=== PATIENT | female | born 1945 | race African-American/Black ===

== ENCOUNTER 2016-12-05 11:31 | Emergency (ER) | payer MEDICARE, MEDICAID ==
[~2016-12-05] VITALS: Ht 165.1 cm; Wt 75.0 kg
[~2016-12-05 11:31] MED LIST changes: -ASPI81CH CHEW; -FERR324T4 PO; -KION15SU; -LANTUS2P SQ; -MAGN100T2 PO; -VITA2000 PO
[2016-12-05 11:36] VITALS: BP 196/81; PULSE 78; RESP 16; TEMP 97.8; O2SAT 97
[2017-05-26] MEDS ORDERED: VITA2000 PO (14:59)
[2017-05-26] MEDS ORDERED: ASPI81CH CHEW (14:59)
[2017-05-26] MEDS ORDERED: FERR324T4 PO (15:00)
[2017-05-26] MEDS ORDERED: KION15SU (15:03)
== END 2016-12-05 14:22 | disposition left against medical advice (07) ==
LOC: NED 11:31
DX: R68.89 Other general symptoms and signs (principal)
CPT/HCPCS: 99281

== ENCOUNTER → 2016-12-05 | Outpatient (CLI) | payer MEDICARE, MEDICAID ==
[~2016-12-05] MED LIST: ALLO100T PO; ASPI1TAB69 PO; ASPI81CH CHEW; CARV12.52 PO; CLOP75TA PO; FERR324T4 PO; FERR325T PO; HYDR-3801 PO; ISOS10TA3 PO; KION15SU; LANTINJ SQ; LANTUS2P SQ; MAGN100T2 PO; VALS1TAB70 PO; VITA2000 PO; VITA200012 PO; [UNRECOGNIZED DRUG - OTHER]
[2016-12-05 10:43] LABS: AUTOMATED NEUTROPHIL # 1.9 TH/MM3 (1.8-7.7); BASOPHIL % 1.1 % (0.0-2.0); EOSINOPHIL # 0.1 TH/MM3 (0-0.4); LYMPH % 34.4 % (9.0-44.0); LYMPHOCYTE # 1.2 TH/MM3 (1.0-4.8); MEAN CELL VOLUME 71.5 FL (80.0-100.0); MEAN CORPUSCULAR HEMOGLOBIN 23.3 PG (27.0-34.0); MEAN CORPUSCULAR HGB CONC 32.6 % (32.0-36.0); MONO % 9.8 % (0.0-8.0); NEUT % 51.7 % (16.0-70.0); PLATELET COUNT 134 TH/MM3 (150-450); RED BLOOD COUNT 2.87 MIL/MM3 (4.00-5.30); RED CELL DISTRIBUTION WIDTH 16.5 % (11.6-17.2); WHITE BLOOD COUNT 3.6 TH/MM3 (4.0-11.0)
[2016-12-05 10:52] LABS: ANION GAP 8 MEQ/L (5-15); BICARBONATE 22.8 MEQ/L (21.0-32.0); BLOOD UREA NITROGEN 48 MG/DL (7-18); CHLORIDE 112 MEQ/L (98-107); GLOMERULAR FILTRATION RATE 16 ML/MIN (>89); GLUCOSE,FASTING 95 MG/DL (74-99); POTASSIUM 4.5 MEQ/L (3.5-5.1); SODIUM (NA) 143 MEQ/L (136-145)
[2016-12-05 11:02] LABS: FREE T4 1.12 NG/DL (0.76-1.46); HDL CHOLESTEROL 43.9 MG/DL (40.0-60.0)
[2016-12-05 11:07] LABS: HEMATOCRIT 20.5 % (35.0-46.0); HEMO FLAGS AUTO DIFF
[2016-12-05 12:10] LABS: HEMOGLOBIN A1a 1.4 %; HEMOGLOBIN A1b 1.6 %; HEMOGLOBIN Ao 84.2 %; HEMOGLOBIN LA1C 2.1 %; HEMOGLOBIN P3 6.1 %
[2016-12-05 12:23] LABS: ACANTHOCYTES 1+ (NORMAL)
[2016-12-05 12:24] LABS: KERATOCYTES 1+ (NORMAL); OVALOCYTES 1+ (NORMAL); SCAN/DIFF AUTO DIFF CONFIRMED
== END ==
LOC: CLAB 09:49
PROVIDERS: ATTEND Internal Medicine Interventional Cardiology
DX: I12.9 Hypertensive chronic kidney disease with stage 1 through stage 4 chronic kidney disease, or unspecified chronic kidney disease (principal); N18.4 Chronic kidney disease, stage 4 (severe); E11.22 Type 2 diabetes mellitus with diabetic chronic kidney disease; I73.9 Peripheral vascular disease, unspecified; R94.39 Abnormal result of other cardiovascular function study; I77.9 Disorder of arteries and arterioles, unspecified; I25.10 Atherosclerotic heart disease of native coronary artery without angina pectoris; I05.9 Rheumatic mitral valve disease, unspecified; E78.2 Mixed hyperlipidemia; Z68.27 Body mass index [BMI] 27.0-27.9, adult
CPT/HCPCS: 36415; 80061; 80069; 82306; 83036; 83970; 84439; 84443; 85025

== ENCOUNTER 2016-12-08 06:14 | Observation (INO) | payer MEDICARE, MEDICAID ==
[~2016-12-08] VITALS: Ht 165.1 cm; Wt 75.0 kg
[2016-12-08] VITALS (7 sets, daily range): BP systolic 130–184; BP diastolic 68–75; PULSE 63–76; RESP 14–20; TEMP 98.1–99; O2SAT 95–100
[2016-12-08] MEDS ORDERED: SODIUM CHLOR 0.9% 250 ML INJ 250 ML IV ONE ×2 (06:45→07:15)
[2016-12-08] MEDS ORDERED: LANTUS2P SQ ×2 (06:45)
[2016-12-08] MEDS ORDERED: MAGN100T2 PO ×2 (06:46)
--- NOTE | 2016-12-08 07:00 | PD ---
HPI Chief Complaint: Abnormal Results Time Seen by Provider: 06:44 Travel History International Travel<30 days: No Contact w/Intl Traveler<30days: No Traveled to known affect area: No History of Present Illness HPI The patient is 71 year old female who presents to the [facility] emergency department with a history of reportedly being told by her convertible power shovel operator, Dr. Olmos that she had abnormal labs on Thursday and that she would need to report to the emergency department for a blood transfusion. The patient reports that her hemoglobin on Thursday was noted to be 6.7. She reports that she has been taking iron supplements orally. She reports that she was placed on Procrit for one dose, however it was not continued as it was not covered by her insurance. She reports that she has a history of renal insufficiency. She has not been on dialysis. She reports that many years ago she did have a blood transfusion related to an operation. She reports that she last had a colonoscopy 2 years ago which was unremarkable. She denies having any blood in her stool. She reports that her stool is dark, however she thought that this was related to her oral iron intake. She denies any symptoms of acid reflux or heartburn. The patient denies having any recent fevers, cough, congestion, neck pain, chest pain, shortness of breath, abdominal pain, vomiting, diarrhea, urinary symptoms , or neurologic symptoms. [facility] Past Medical History Narrative Medical The patient's past medical history is significant for chronic renal insufficiency, history of anemia, history of hypertension, history of coronary artery disease, history of diabetes mellitus, history of neuropathy, history of hypothyroid disorder. Anemia: Yes Arthritis: No Asthma: No Autoimmune Disease: No Blood Disorders: Yes (ANEMIA) Heart Rhythm Problems: No Cancer: No Cardiac Catheterization: Yes High Cholesterol: Yes Chemotherapy: No Chest Pain: No Congestive Heart Failure: No COPD: No Cerebrovascular Accident: No Diabetes: Yes Patient Takes Glucophage: No Endocrine: Yes Gastrointestinal Disorders: Yes (HX GERD - NOW RESOLVED ) GERD: Yes Glaucoma: No Genitourinary: Yes Headaches: No Hepatitis: No Hiatal Hernia: No Hypertension: Yes Immune Disorder: No Kidney Stones: No Musculoskeletal: Yes (ARTHRITIS ) Neurologic: Yes (MILD NEUROPATHY BOTH FEET) Psychiatric: No Reproductive: No Respiratory: No Integumentary: No Migraines: No Myocardial Infarction: No Radiation Therapy: No Renal Failure: Yes Seizures: No Sleep Apnea: No Thyroid Disease: Yes Ulcer: No PNEUMOCCOCAL Vaccine (Year): 1 Menopausal: Yes : 3 Para: 3 Tubal Ligation: Yes Past Surgical History Narrative Surgical The patient's past surgical history is significant for 3 prior C-sections, bilateral tubal ligation, cholecystectomy, eye surgery related to cataracts, thyroid surgery in 2003, right lower extremity ORIF, appendectomy, history of neck surgery, history of back surgery. Abdominal Surgery: Yes (APPENDECTOMY) AICD: No Appendectomy: Yes Arteriovenous Shunt: No Body Medical Devices: HERBIE & STENT RIGHT LOWER EXREMITY; Cardiac Surgery: No Section: Yes (X3) Cholecystectomy: Yes Coronary Artery Bypass Graft: No Ear Surgery: No Endocrine Surgery: Yes (THYROID SURGERY 2003) Eye Surgery: Yes (CHARLES CATARACT EXTRACTION WITH LENS IMPLANT) Genitourinary Surgery: Yes (CHOLECYSTECTOMY ) Gynecologic Surgery: Yes (3 C-SECTIONS IN , TUBAL LIGATION) Insulin Pump: No Joint Replacement: No Neurologic Surgery: Yes (MULTIPLE BACK SURGERIES,NECK SX X2 HERBIE RLE) Oral Surgery: No Pacemaker: No Thoracic Surgery: No Other Surgery: Yes (/GALLBLADDER/BACK/NECK/APPENDECTOMY/THYROID) Family History Family Myocardial Infarction: Yes (FATHER HAD SC AND VALVE REPLACEMENT) Social History Alcohol Use: No Tobacco Use: No Substance Use: No Allergies-Medications (Allergen,Severity, Reaction): Coded Allergies: Iodinated Contrast Media (Verified Allergy, Severe, 12/08/16) CANNOT USE DUE TO END STAGE RENAL FAILURE Sulfa (Verified Allergy, Severe, PALPATIONS, 12/08/16) Lortab (Unverified Allergy, Unknown, NAUSEA & VOMITTING, 12/08/16) Uncoded Allergies: MORPHINE SULFATE (Adverse Reaction, Unknown, NAUSEA & VOMITTING, 07/23/15) Reported Meds & Prescriptions Reported Meds & Active Scripts Active Vitamin D3 (Cholecalciferol) 2,000 Unit Tab 2 Tab PO DAILY [pet] Ms. Brantley needs her pet for emotional support and stability. Reported Magnesium Citrate 100 Mg Tab 200 Mg PO DAILY PRN Lantus Inj (Insulin Glargine) 100 Unit/Ml Inj 4 Units SQ DAILY Allopurinol 100 Mg Tab 100 Mg PO DAILY Isosorbide Mononitrate 10 Mg Tab 10 Mg PO TID Take 2 doses 7 hours apart. Valsartan 320 Mg Tab 320 Mg PO DAILY Aspirin 81 Mg Tabdr 81 Mg PO DAILY Carvedilol 12.5 Mg Tab 12.5 Mg PO BID Clopidogrel (Clopidogrel Bisulfate) 75 Mg Tab 75 Mg PO DAILY Ferrous Sulfate 325 Mg Tab 325 Mg PO BID Hydralazine (Hydralazine HCl) 100 Mg Tab 100 Mg PO Q8HR Take with meals Review of Systems Except as stated in HPI: all other systems reviewed are Neg General / Constitutional: No: Fever Eyes: No: Visual changes HENT: No: Headaches Cardiovascular: No: Chest Pain or Discomfort Respiratory: No: Shortness of Breath Gastrointestinal: No: Abdominal Pain Genitourinary: No: Dysuria Musculoskeletal: No: Pain Skin: No Rash Neurologic: No: Weakness, Focal Abnormalities, Change in Mentation, Slurred Speech, Sensory Disturbance Psychiatric: No: Depression Endocrine: No: Polydipsia Hematologic/Lymphatic: No: Easy Bruising Physical Exam Narrative General: The patient is a well-developed well-nourished female in no acute distress. Head and Neck exam: Head is normocephalic atraumatic. Eyes: Pupils are equal round and reactive to light. Bulbar mucosal pallor is noted. Nose: Midline septum with pink mucous membranes Mouth: Dentition unremarkable. Moist mucus membranes. Posterior oropharynx is not erythematous. No tonsillar hypertrophy. Uvula midline. Airway patent. Neck: No palpable lymphadenopathy. No nuchal rigidity. No thyromegaly. Cardiovascular: Regular rate and rhythm without murmurs, gallops, or rubs. Lungs: Clear to auscultation bilaterally. No wheezes, rhonchi, or rales. Abdomen: Soft, without tenderness to palpation in all 4 quadrants of the abdomen. No guarding, rebound, or rigidity. No tenderness on palpation of McBurney's point. Normal bowel sounds are audible. Extremities: No clubbing, cyanosis, or edema. 2+ pulses in all 4 extremities. No calf tenderness on palpation. Back: No spinous process tenderness to palpation. No costovertebral angle tenderness to palpation. Neurologic Exam: Grossly nonfocal. Skin Exam: No rash noted. Intact skin that is warm and dry. Data Data Last Documented VS Vital Signs Date Time Temp Pulse Resp B/P Pulse Ox O2 Delivery O2 Flow Rate FiO2 12/08/16 06:17 98.1 75 16 130/68 100 Room Air Orders Electrocardiogram (12/08/16 06:44) Complete Blood Count With Diff (12/08/16 06:44) Comprehensive Metabolic Panel (12/08/16 06:44) Prothrombin Time / Inr (Pt) (12/08/16 06:44) Act Partial Throm Time (Ptt) (12/08/16 06:44) Chest, Single Ap (12/08/16 06:44) Iv Access Insert/Monitor (12/08/16 06:44) Ecg Monitoring (12/08/16 06:44) Oximetry (12/08/16 06:44) Type And Screen (12/08/16 06:44) Red Blood Cells (Rbc) (12/08/16 06:44) Sodium Chlor 0.9% 250 Ml Inj (Ns 250 Ml (12/08/16 06:45) MDM Medical Decision Making Medical Screen Exam Complete: Yes Emergency Medical Condition: Yes Medical Record Reviewed: Yes Differential Diagnosis Worsening anemia, versus chronic anemia Narrative Course During the course of the patients emergency department visit, the patients history, examination, and differential diagnosis were reviewed with the patient. The patient had IV access obtained and blood work sent for analysis. The patient was placed on a cardiac nurse with oximetry and blood pressure monitoring. An EKG has been ordered. The patient was typed and screened for blood. The patient will have the unit administered if her hemoglobin is found to be as low as previously checked as an outpatient on Thursday. The patient's laboratory studies, chest x-ray are currently pending. The patient's case will be checked out to the oncoming emergency room physician to disposition based on the conclusion of the patient's workup, however I suspect that if the patient's hemoglobin is is low as previously noted as an outpatient at 6.7, the patient will be admitted for a blood transfusion. Diagnosis Primary Impression: Anemia Qualified Code: D64.89 - Anemia due to other cause, not classified Gabriella Stevens MD Dec 08, 2016 06:59
[2016-12-08 07:02] LABS: AUTOMATED NEUTROPHIL # 2.3 TH/MM3 (1.8-7.7); EOSINOPHIL # 0.1 TH/MM3 (0-0.4); EOSINOPHIL % 3.2 % (0.0-4.0); LYMPH % 34.4 % (9.0-44.0); LYMPHOCYTE # 1.5 TH/MM3 (1.0-4.8); MEAN CORPUSCULAR HEMOGLOBIN 24.2 PG (27.0-34.0); MONO % 9.8 % (0.0-8.0); NEUT % 51.6 % (16.0-70.0); PLATELET COUNT 119 TH/MM3 (150-450); RED CELL DISTRIBUTION WIDTH 16.3 % (11.6-17.2); WHITE BLOOD COUNT 4.4 TH/MM3 (4.0-11.0)
[2016-12-08 07:04] LABS: HEMO FLAGS AUTO DIFF
[2016-12-08 07:06] LABS: HEMATOCRIT 19.8 % (35.0-46.0)
--- NOTE | 2016-12-08 07:11 | RADRPT ---
EXAM DATE/TIME: 12/08/2016 06:49 [facility] COMPARISON: CHEST SINGLE AP, October 12, 2012, 6:32. INDICATIONS : Low hemoglobin. MEDICAL HISTORY : None. SURGICAL HISTORY : None. ENCOUNTER: Initial ACUITY: 3 days PAIN SCORE: 0/10 LOCATION: Bilateral chest FINDINGS: Portable AP view of the chest demonstrates a normal-sized cardiac silhouette. No effusion, consolidat ion, or pneumothorax is visualized. The bones and soft tissues demonstrate no acute abnormality. Lung s are mildly underinflated with atelectasis at the bases. CONCLUSION: No acute cardiopulmonary abnormality is identified. Emery Ritchie MD on December 08, 2016 at 7:08 Board Certified Radiologist. This report was verified electronically.
[2016-12-08 07:14] LABS: PROTHROMBIN TIME - PATIENT 11.2 SEC (9.8-11.6)
[2016-12-08] MEDS ORDERED: FUROSEMIDE 20 MG/2 ML VIAL IV PUSH ONE (07:15)
[2016-12-08 07:20] LABS: ALT (GPT) 12 U/L (10-53); ANION GAP 7 MEQ/L (5-15); AST (GOT) 15 U/L (15-37); BICARBONATE 22.8 MEQ/L (21.0-32.0); BLOOD UREA NITROGEN 55 MG/DL (7-18); CHLORIDE 110 MEQ/L (98-107); GLOMERULAR FILTRATION RATE 14 ML/MIN (>89); POTASSIUM 4.7 MEQ/L (3.5-5.1); SODIUM (NA) 140 MEQ/L (136-145)
[2016-12-08 07:22] LABS: ALKALINE PHOSPHATASE 59 U/L (45-117); TOTAL BILIRUBIN ADULT 0.3 MG/DL (0.2-1.0)
--- NOTE | 2016-12-08 07:30 | PD ---
Physical Exam Narrative Patient was seen by ED physician and signed out to me. Data Data Last Documented VS Vital Signs Date Time Temp Pulse Resp B/P Pulse Ox O2 Delivery O2 Flow Rate FiO2 12/08/16 06:17 98.1 75 16 130/68 100 Room Air Orders Electrocardiogram (12/08/16 06:44) Complete Blood Count With Diff (12/08/16 06:44) Comprehensive Metabolic Panel (12/08/16 06:44) Prothrombin Time / Inr (Pt) (12/08/16 06:44) Act Partial Throm Time (Ptt) (12/08/16 06:44) Chest, Single Ap (12/08/16 06:44) Iv Access Insert/Monitor (12/08/16 06:44) Ecg Monitoring (12/08/16 06:44) Oximetry (12/08/16 06:44) Type And Screen (12/08/16 06:44) Red Blood Cells (Rbc) (12/08/16 06:44) Sodium Chlor 0.9% 250 Ml Inj (Ns 250 Ml (12/08/16 06:45) Blood Product Administration .UPON TRANSFUSION (12/08/16 07:06) Sodium Chlor 0.9% 250 Ml Inj (Ns 250 Ml (12/08/16 07:15) Furosemide Inj (Lasix Inj) (12/08/16 07:15) Labs Laboratory Tests Test 12/08/16 06:50 White Blood Count 4.4 TH/MM3 Red Blood Count 2.80 MIL/MM3 Hemoglobin 6.8 GM/DL Hematocrit 19.8 % Mean Corpuscular Volume 71.0 FL Mean Corpuscular Hemoglobin 24.2 PG Mean Corpuscular Hemoglobin 34.0 % Concent Red Cell Distribution Width 16.3 % Platelet Count 119 TH/MM3 Mean Platelet Volume 9.4 FL Neutrophils (%) (Auto) 51.6 % Lymphocytes (%) (Auto) 34.4 % Monocytes (%) (Auto) 9.8 % Eosinophils (%) (Auto) 3.2 % Basophils (%) (Auto) 1.0 % Neutrophils # (Auto) 2.3 TH/MM3 Lymphocytes # (Auto) 1.5 TH/MM3 Monocytes # (Auto) 0.4 TH/MM3 Eosinophils # (Auto) 0.1 TH/MM3 Basophils # (Auto) 0.0 TH/MM3 CBC Comment AUTO DIFF Prothrombin Time 11.2 SEC Prothromb Time International 1.0 RATIO Ratio Activated Partial 28.0 SEC Thromboplast Time Sodium Level 140 MEQ/L Potassium Level 4.7 MEQ/L Chloride Level 110 MEQ/L Carbon Dioxide Level 22.8 MEQ/L Anion Gap 7 MEQ/L Blood Urea Nitrogen 55 MG/DL Creatinine 3.75 MG/DL Estimat Glomerular Filtration 14 ML/MIN Rate Random Glucose 115 MG/DL Calcium Level 9.3 MG/DL Total Bilirubin 0.3 MG/DL Aspartate Amino Transf 15 U/L (AST/SGOT) Alanine Aminotransferase 12 U/L (ALT/SGPT) Alkaline Phosphatase 59 U/L Total Protein 6.5 GM/DL Albumin 3.8 GM/DL Blood Type O POSITIVE MDM Supervised Visit with EMILY: No Interpretation(s) 7:27 AM. CBC hemoglobin 6.8 hematocrit 19.8. MCV 71.0. Platelet 119. BUN 55. Creatinine 3.75. Last Impressions Chest X-Ray 12/08/16 0644 Signed Impressions: Service Date/Time: Thursday, December 08, 2016 06:49 - CONCLUSION: No acute cardiopulmonary abnormality is identified. Emery Ritchie MD Diagnosis Primary Impression: Anemia Qualified Code: D64.89 - Anemia due to other cause, not classified Additional Impressions: Thrombocytopenia Chronic kidney disease, stage 5, kidney failure Henrry Paz MD Dec 08, 2016 07:29
[2016-12-08 07:40] LABS: ACANTHOCYTES 1+ (NORMAL); KERATOCYTES OCC (NORMAL); OVALOCYTES 1+ (NORMAL); PLATELET ESTIMATE SMEAR LOW (NORMAL); PLATELET MORPHOLOGY ENLARGED (NORMAL); SCAN/DIFF AUTO DIFF CONFIRMED
[2016-12-08] MEDS ORDERED: ACETAMINOPHEN 325 MG TAB PO PRN ×2 (08:15→08:30)
[2016-12-08] MEDS ORDERED: ONDANSETRON HCL 4 MG/2 ML VIAL IV PRN (08:15)
[2016-12-08] MEDS ORDERED: SODIUM CHLORIDE 0.9% FLUSH 5 ML FLUSH IVF PRN (08:15)
--- NOTE | 2016-12-08 08:19 | HHI.HP ---
[facility] Service Family Medicine Primary Care Physician Flori Benito MD Admission Diagnosis anemia. Thrombocytopenia. Diagnoses: Chief Complaint: Low hemoglobin, sent by Dr. Olmos. International Travel<30 Days: No Contact w/Intl Traveler<30days: No Known Affected Area: No History of Present Illness Patient is a 71 year old female with a PMH significant for chronic renal insufficiency, anemia, hypertension, CAD, and DM type II who presents today for low hemoglobin. Patient states that her tombstone erector helper, Dr. Olmos did labs Thursday and found that her Hgb was low and recommended that she come to the hospital for a blood transfusion. She did present to the hospital Thursday but had to wait for >3 hours and so she left instead of being seen. She denies any fatigue or malaise. She continues to walk her dog and complete housework without difficulty. Patient states that her hgb usually runs low but she is unsure why it dropped this low today. She has never had dialysis. Her last colonoscopy was in 2010 and she had polyps removed. She denies any chest pain, shortness of breath, fever, chills, abdominal pain, black or bloody stools, hematuria, dysuria, or change in appetite. She does know a chronic feeling of cold, but otherwise feels at her baseline. (Lisseth Morrell MD R2) Review of Systems Constitutional: DENIES: Fatigue, Fever, Chills Eyes: DENIES: Blurred vision Ears, nose, mouth, throat: COMPLAINS OF: Nasal discharge, Sinus Pain Respiratory: DENIES: Shortness of breath Cardiovascular: DENIES: Chest pain Gastrointestinal: COMPLAINS OF: Black stools, DENIES: Abdominal pain, Bloody stools, Diarrhea, Nausea, Vomiting Genitourinary: DENIES: Abnormal vaginal bleeding, Hematuria, Dysuria Musculoskeletal: DENIES: Muscle aches, Back pain Integumentary: DENIES: Rash Hematologic/lymphatic: DENIES: Bruising Neurologic: DENIES: Headache Psychiatric: DENIES: Mood changes (Lisseth Morrell MD R2) Past Family Social History Past Medical History chronic renal insufficiency, history of anemia, history of hypertension, history of coronary artery disease, history of diabetes mellitus, history of neuropathy Past Surgical History 3 prior C-sections, bilateral tubal ligation, cholecystectomy, eye surgery related to cataracts, thyroid surgery in 2003, right lower extremity ORIF, appendectomy, history of neck surgery, history of back surgery. Reported Medications Reported Meds & Active Scripts Active Vitamin D3 (Cholecalciferol) 2,000 Unit Tab 2 Tab PO DAILY [pet] Ms. Brantley needs her pet for emotional support and stability. Reported Magnesium Citrate 100 Mg Tab 200 Mg PO DAILY PRN Lantus Inj (Insulin Glargine) 100 Unit/Ml Inj 4 Units SQ DAILY Allopurinol 100 Mg Tab 100 Mg PO DAILY Isosorbide Mononitrate 10 Mg Tab 10 Mg PO TID Take 2 doses 7 hours apart. Valsartan 320 Mg Tab 320 Mg PO DAILY Aspirin 81 Mg Tabdr 81 Mg PO DAILY Carvedilol 12.5 Mg Tab 12.5 Mg PO BID Clopidogrel (Clopidogrel Bisulfate) 75 Mg Tab 75 Mg PO DAILY Ferrous Sulfate 325 Mg Tab 325 Mg PO BID Hydralazine (Hydralazine HCl) 100 Mg Tab 100 Mg PO Q8HR Take with meals (Lisseth Morrell MD R2) Allergies: Coded Allergies: Iodinated Contrast Media (Verified Allergy, Severe, 12/08/16) CANNOT USE DUE TO END STAGE RENAL FAILURE Sulfa (Verified Allergy, Severe, PALPATIONS, 12/08/16) Lortab (Unverified Allergy, Unknown, NAUSEA & VOMITTING, 12/08/16) Uncoded Allergies: MORPHINE SULFATE (Adverse Reaction, Unknown, NAUSEA & VOMITTING, 07/23/15) Active Ordered Medications Current Medications Medications (Trade) Dose Ordered Sig/Luis Route Start Time Stop Time Status Last Admin Sodium Chloride 250 ml @ 15 mls/hr ONCE ONCE IV 12/08/16 06:45 12/08/16 23:24 (NS 250 ml Inj) 250 ml @ 15 mls/hr ONCE ONCE IV 12/08/16 07:15 12/08/16 23:54 (Zofran Inj) 4 mg Q6H PRN IV 12/08/16 08:15 UNV (Tylenol) 650 mg Q4H PRN PO 12/08/16 08:15 UNV (NS Flush) 2 ml BID IVF 12/08/16 09:00 UNV (NS Flush) 2 ml UNSCH PRN IVF 12/08/16 08:15 UNV Family History Brother: CKD on dialysis Mother: Heart disease Father: DM type 2, heart disease Social History Tobacco: none Alcohol: none Illicit Drug Use: none Lives with dog in an apartment. Supportive family nearby. (Lisseth Morrell MD R2) Physical Exam Vital Signs Vital Signs Date Time Temp Pulse Resp B/P Pulse Ox O2 Delivery O2 Flow Rate FiO2 12/08/16 06:17 98.1 75 16 130/68 100 Room Air Physical Exam GENERAL: This is a well-nourished, well-developed female patient, in no apparent distress. SKIN: No rashes, ecchymoses or lesions. Cool and dry. HEAD: Atraumatic. Normocephalic. No temporal or scalp tenderness. EYES: Pupils equal round and reactive. Extraocular motions intact. No scleral icterus. No injection or drainage. Mild conjunctival pallor. ENT: Nose without bleeding, purulent drainage or septal hematoma. Throat without erythema, tonsillar hypertrophy or exudate. Uvula midline. Airway patent. NECK: Trachea midline. No JVD or lymphadenopathy. Supple, nontender, no meningeal signs. CARDIOVASCULAR: Regular rate and rhythm without murmurs, gallops, or rubs. RESPIRATORY: Clear to auscultation. Breath sounds equal bilaterally. No wheezes , rales, or rhonchi. GASTROINTESTINAL: Abdomen soft, non-tender, nondistended. No hepato-splenomegaly , or palpable masses. No guarding. MUSCULOSKELETAL: Extremities without clubbing, cyanosis, or edema. No joint tenderness, effusion, or edema noted. No calf tenderness. NEUROLOGICAL: Awake and alert. Cranial nerves II through XII intact. Motor and sensory grossly within normal limits. Normal speech. Laboratory Laboratory Tests Test 12/08/16 06:50 White Blood Count 4.4 Red Blood Count 2.80 Hemoglobin 6.8 Hematocrit 19.8 Mean Corpuscular Volume 71.0 Mean Corpuscular Hemoglobin 24.2 Mean Corpuscular Hemoglobin 34.0 Concent Red Cell Distribution Width 16.3 Platelet Count 119 Mean Platelet Volume 9.4 Neutrophils (%) (Auto) 51.6 Lymphocytes (%) (Auto) 34.4 Monocytes (%) (Auto) 9.8 Eosinophils (%) (Auto) 3.2 Basophils (%) (Auto) 1.0 Neutrophils # (Auto) 2.3 Lymphocytes # (Auto) 1.5 Monocytes # (Auto) 0.4 Eosinophils # (Auto) 0.1 Basophils # (Auto) 0.0 CBC Comment AUTO DIFF Differential Comment AUTO DIFF CONFIRMED Platelet Estimate LOW Platelet Morphology Comment ENLARGED Ovalocytes 1+ Acanthocytes 1+ Keratocytes OCC Prothrombin Time 11.2 Prothromb Time International 1.0 Ratio Activated Partial 28.0 Thromboplast Time Sodium Level 140 Potassium Level 4.7 Chloride Level 110 Carbon Dioxide Level 22.8 Anion Gap 7 Blood Urea Nitrogen 55 Creatinine 3.75 Estimat Glomerular Filtration 14 Rate Random Glucose 115 Calcium Level 9.3 Total Bilirubin 0.3 Aspartate Amino Transf 15 (AST/SGOT) Alanine Aminotransferase 12 (ALT/SGPT) Alkaline Phosphatase 59 Total Protein 6.5 Albumin 3.8 Blood Type O POSITIVE Antibody Screen NEGATIVE Crossmatch Leukocyte-Reduced Red Blood Cells Blood Bank Comment (Lisseth Morrell MD R2) Result Diagram: 12/08/1650 12/08/1650 Imaging Last Impressions Chest X-Ray 12/08/1644 Signed Impressions: Service Date/Time: Thursday, December 08, 2016 06:49 - CONCLUSION: No acute cardiopulmonary abnormality is identified. Emery Ritchie MD (Lisseth Morrell MD R2) Assessment and Plan Assessment and Plan Patient is a 71 year old female with a PMH significant for chronic renal insufficiency, anemia, hypertension, CAD, and DM type II who presents today for low hemoglobin on outpatient labs. Code Status Full Code. Discussed Condition With sdw Dr. Reyna and Cherelle MS4 dw Dr. Benito (Lisseth Morrell MD R2) Attending Attestation Patient seen and examined. Case reviewed and discussed with the resident team. Agree with plan of care as discussed with me and documented in the resident note. (Flori Benito MD) Problem List: (1) Anemia Status: Acute Plan: Asymptomatic anemia H/H 6.8/19.8 No evidence of bleed on physical exam Likely secondary to CKD PT/PTT/INR wnl s/p type and screen Plan: - Transfuse 2 units PRBC - Repeat H/H after transfusion - Lasix between units (2) HTN (hypertension) Status: Acute Plan: Continue home dose of hydralazine 100 mg by mouth every 8 hours and valsartan 320 mg by mouth daily (3) CAD (coronary artery disease) Status: Acute Plan: Continue home dose of Plavix 75 mg by mouth daily, carvedilol 12.5 mg by mouth twice a day, and isosorbide mononitrate 10 mg by mouth 3 times a day (4) DM type 2 (diabetes mellitus, type 2) Status: Acute Plan: On Lantus 4 units subcutaneous daily at home Plan: - Accu-Cheks w/ SSI (5) CKD (chronic kidney disease) Status: Acute Plan: Creatinine 3.75, BUN 55 on admission Baseline creatinine appears to be around 4.0 Follows with tombstone erector helper, Dr. Olmos Renal diet Continue Ferrous Sulfate 325mg PO BID Currently not on Procrit as insurance will not cover it. (6) Nutrition, metabolism, and development symptoms Status: Acute Plan: Fluids: None Electrolytes: wnl, continue to monitor and replete as needed Nutrition: Renal Diet DVT PPx: SCD's (Lisseth Morrell MD R2) Problem Qualifiers (1) Anemia: Qualified Code: D64.89 - Anemia due to other cause, not classified (2) HTN (hypertension): Qualified Code: I10 - Essential hypertension (3) CAD (coronary artery disease): Qualified Code: I25.10 - Coronary artery disease involving [place] coronary artery of [place] heart without angina pectoris (4) DM type 2 (diabetes mellitus, type 2): Qualified Code: E11.9 - Type 2 diabetes mellitus without complication, with long-term current use of insulin (5) CKD (chronic kidney disease): Qualified Code: N18.3 - CKD (chronic kidney disease), stage 3 (moderate) Lisseth Morrell MD R2 Dec 08, 2016 08:19 Flori Benito MD Dec 08, 2016 14:31
[2016-12-08] MEDS ORDERED: NALOXONE HCL 0.4 MG/ML AMP IV PRN (08:30)
[2016-12-08] MEDS ORDERED: SODIUM CHLORIDE 0.9% FLUSH 5 ML FLUSH FLUSH PRN (08:30)
--- NOTE | 2016-12-08 08:42 | HHI.FPPN ---
Subjective Remarks Pt. seen, examined and discussed with the Medicine Team. This is a 71 yo AA female well known to me with history of CKD stage V, Anemia, DM who is here because her steward/stewardess club car sent her in for 2 u prbc because of a hemoglobin 6.7 as outpatient. She denies dizziness, weakness, lightheadedness but does have sensation of being cold all the time.Otherwise she is at her baseline. Objective Vitals Vital Signs Date Time Temp Pulse Resp B/P Pulse Ox O2 Delivery O2 Flow Rate FiO2 12/08/16 06:17 98.1 75 16 130/68 100 Room Air Result Diagram: 12/08/16 0650 12/08/16 0650 Objective Remarks O. CONSTITUTIONAL/GEN: normally nourished, in NAD. EYES: conjunctiva normal, PERRLA, EOMI. ENT: Mouth and pharynx normal. Dentures. NECK: supple LUNGS: clear A-P, respiratory effort is normal. CARDIOVASCULAR: RR without murmur or gallop. No significant edema. GI/ABD: soft without masses, without organomegaly. NEURO: No focal deficits. SKIN: color normal, no rashes noted. HEME/LYMPH: no bruising, petechia or significant adenopathy MUSC: back is normal in appearance. Extremities are normal in appearance. PSYCH/MENTAL STATUS: Alert and oriented x 3. A/P Assessment and Plan Anemia due to CKD stage V, here for transfusion. Attending Attestation Patient seen and examined. Case reviewed and discussed with the resident team. Agree with plan of care as discussed with me and documented in the resident note. Flori Benito MD Dec 08, 2016 08:42
[2016-12-08] MEDS ORDERED: hydrALAZINE HCL 10 MG TAB PO PRN (08:45)
[2016-12-08] MEDS ORDERED: ONDANSETRON ODT 4 MG TAB PO PRN (08:45)
[2016-12-08] MEDS ORDERED: CLOPIDOGREL 75 MG TAB PO SCH (09:00)
[2016-12-08] MEDS ORDERED: FERROUS SULFATE 325 MG (65 MG ELEMENTAL IRON) TAB PO SCH (09:00)
[2016-12-08] MEDS ORDERED: SODIUM CHLORIDE 0.9% FLUSH 5 ML FLUSH IVF SCH (09:00)
[2016-12-08] MEDS ORDERED: CARVEDILOL 12.5 MG TAB PO SCH (09:00)
[2016-12-08] MEDS ORDERED: ALLOPURINOL 100 MG TAB PO SCH (09:00)
[2016-12-08] MEDS: ISOSORBIDE MONONITRATE 20 MG TAB PO SCH ×3 (09:00→18:00)
[2016-12-08] MEDS ORDERED: CHOLECALCIFEROL (VIT D3) 1000 UNIT TAB PO SCH (09:00)
[2016-12-08] MEDS ORDERED: VALSARTAN 160 MG TAB PO SCH (09:00)
[2016-12-08] MEDS ORDERED: SODIUM CHLORIDE 0.9% FLUSH 5 ML FLUSH FLUSH SCH (09:00)
[2016-12-08] MEDS ORDERED: GLUCAGON 1 MG/ML VIAL OTHER PRN (10:30)
[2016-12-08] MEDS ORDERED: DEXTROSE 50% IN WATER 50 ML VIAL(D50) IV PUSH PRN (10:30)
[2016-12-08] MEDS: INSULIN ASPART SUPPLEMENTAL SCALE SQ SCH ×2 (11:00→16:00)
--- NOTE | 2016-12-08 11:03 | EKG ---
Date Performed: 12/08/2016 Time Performed: 07:03:07 PTAGE: 71 years EKG: Sinus rhythm NORMAL ECG PREVIOUS TRACING : 07/24/2015 10.21 Compared to previous tracing, poor R wave progression is no longer evident. DOCTOR: Henrik Brown Interpretating Date/Time 12/08/2016 11:02:51
[2016-12-08] MEDS ORDERED: hydrALAZINE HCL 100 MG TAB PO SCH (14:00)
--- NOTE | 2016-12-08 15:26 | HHI.DCPOC ---
Discharge Care Plan Diagnosis: (1) Anemia of chronic renal failure (2) Chronic kidney disease, stage 5, kidney failure (3) DM type 2 (diabetes mellitus, type 2) (4) CAD (coronary artery disease) Goals to Promote Your Health * To prevent worsening of your condition and complications * To maintain your health at the optimal level Directions to Meet Your Goals Take your medications as prescribed Follow your dietary instruction Follow activity as directed Keep your appointments as scheduled Take your immunizations and boosters as scheduled If your symptoms worsen call your PCP, if no PCP go to Urgent Care Center or Emergency Room Smoking is Dangerous to Your Health. Avoid second hand smoke Call the 24-hour hour crisis hotline for domestic abuse at Genoveva Reyna MD R1 Dec 08, 2016 15:26
[2016-12-08 16:41] LABS: HEMATOCRIT 26.7 % (35.0-46.0)
[2016-12-08 16:48] LABS: REVIEW FLAG FINAL
--- NOTE | 2016-12-08 17:18 | HHI.FPPN ---
Subjective Remarks 71 yo with CKD stage V and anemia who was found to have hemoglobin 6.7 as outpatient and was told by her sales representative printing paper to come to ED for transfusion. She presented Thursday but left without being seen after waiting 3 hours. She presented early this a.m. and was admitted to observation status for transfusion of 2 units of prbc. Her initial symptom was simply feeling cold all the time, with no dizziness, lightheadedness or weakness. After her two units, she has had no adverse effects and notes that she no longer feels cold. She would like to go home. Objective Vitals Vital Signs Date Time Temp Pulse Resp B/P Pulse Ox O2 Delivery O2 Flow Rate FiO2 12/08/16 16:52 99.0 66 16 184/74 99 12/08/16 12:47 98.1 76 18 152/74 96 12/08/16 09:59 98.2 63 16 165/71 97 12/08/16 09:20 99 21 12/08/16 09:09 98.1 65 14 160/75 99 Room Air 12/08/16 08:54 98.3 64 20 163/74 95 Room Air 12/08/16 06:17 98.1 75 16 130/68 100 Room Air Result Diagram: 12/08/16 1620 12/08/16 0650 Objective Remarks O. CONSTITUTIONAL/GEN: normally nourished, in NAD. EYES: conjunctiva normal, PERRLA, EOMI. ENT: Mouth and pharynx normal. Dentures. NECK: supple LUNGS: clear A-P, respiratory effort is normal. No murmur. CARDIOVASCULAR: RR without murmur or gallop. No significant edema. GI/ABD: soft without masses, without organomegaly. NEURO: No focal deficits. SKIN: color normal, no rashes noted. Warm and dry. HEME/LYMPH: no bruising, petechia or significant adenopathy MUSC: back is normal in appearance. Extremities are normal in appearance. PSYCH/MENTAL STATUS: Alert and oriented x 3. A/P Assessment and Plan Patient is a 71 year old female with a PMH significant for chronic renal insufficiency, anemia, hypertension, CAD, and DM type II who presents today for low hemoglobin on outpatient labs. Her hemoglobin has improved to 8.8 after 2 units prbc. Stable for discharge home. She has a follow-up appt. with her sales representative printing paper on of this week and can follow up with me in 2 weeks. Attending Attestation Patient seen and examined. Case reviewed and discussed with the resident team. Agree with plan of care as discussed with me and documented in the note. Problem List: (1) Anemia Status: Acute Plan: Asymptomatic anemia H/H 6.8/19.8 No evidence of bleed on physical exam Likely secondary to CKD PT/PTT/INR wnl s/p type and screen Plan: - Transfuse 2 units PRBC - Repeat H/H after transfusion - Lasix between units (2) HTN (hypertension) Status: Acute Plan: Continue home dose of hydralazine 100 mg by mouth every 8 hours and valsartan 320 mg by mouth daily (3) CAD (coronary artery disease) Status: Acute Plan: Continue home dose of Plavix 75 mg by mouth daily, carvedilol 12.5 mg by mouth twice a day, and isosorbide mononitrate 10 mg by mouth 3 times a day (4) DM type 2 (diabetes mellitus, type 2) Status: Acute Plan: On Lantus 4 units subcutaneous daily at home Plan: - Accu-Cheks w/ SSI (5) CKD (chronic kidney disease) Status: Acute Plan: Creatinine 3.75, BUN 55 on admission Baseline creatinine appears to be around 4.0 Follows with sales representative printing paper, Dr. Olmos Renal diet Continue Ferrous Sulfate 325mg PO BID Currently not on Procrit as insurance will not cover it. (6) Nutrition, metabolism, and development symptoms Status: Acute Plan: Fluids: None Electrolytes: wnl, continue to monitor and replete as needed Nutrition: Renal Diet DVT PPx: SCD's Problem Qualifiers (1) Anemia: Qualified Code: D64.89 - Anemia due to other cause, not classified (2) HTN (hypertension): Qualified Code: I10 - Essential hypertension (3) CAD (coronary artery disease): Qualified Code: I25.10 - Coronary artery disease involving [place] coronary artery of [place] heart without angina pectoris (4) DM type 2 (diabetes mellitus, type 2): Qualified Code: E11.9 - Type 2 diabetes mellitus without complication, with long-term current use of insulin (5) CKD (chronic kidney disease): Qualified Code: N18.3 - CKD (chronic kidney disease), stage 3 (moderate) Flori Benito MD Dec 08, 2016 17:18
[2016-12-08] MEDS ORDERED: DOCUSATE SODIUM 50 MG/SENNA 8.6 MG TAB PO SCH (21:00)
[2017-05-26] MEDS ORDERED: VITA2000 PO (14:59)
[2017-05-26] MEDS ORDERED: ASPI81CH CHEW (14:59)
[2017-05-26] MEDS ORDERED: FERR324T4 PO (15:00)
[2017-05-26] MEDS ORDERED: KION15SU (15:03)
== END 2016-12-08 18:49 | disposition home or self-care (01) ==
LOC: NEPE 06:14 → NEDA 08:01 → NEPFCDU 09:55
PROVIDERS: ADMIT Family Medicine; ATTEND Family Medicine
DX: D63.1 Anemia in chronic kidney disease (principal); D69.6 Thrombocytopenia, unspecified; N18.5 Chronic kidney disease, stage 5; I12.0 Hypertensive chronic kidney disease with stage 5 chronic kidney disease or end stage renal disease; E11.22 Type 2 diabetes mellitus with diabetic chronic kidney disease; I25.10 Atherosclerotic heart disease of native coronary artery without angina pectoris; E03.9 Hypothyroidism, unspecified; E78.00 Pure hypercholesterolemia, unspecified; K21.9 Gastro-esophageal reflux disease without esophagitis; M19.90 Unspecified osteoarthritis, unspecified site; Z79.4 Long term (current) use of insulin
CPT/HCPCS: 36430; 71010; 80053; 82948; 85014; 85018; 85025; 85610; 85730; 86850; 86900; 86901; 86920; 93005; 99285; G0378; J1940; J7050; P9016

== ENCOUNTER → 2017-02-04 | Outpatient (CLI) | payer MEDICARE, MEDICAID ==
[~2017-02-04] MED LIST changes: +ASPI81CH CHEW; +FERR324T4 PO; +KION15SU; -LANTINJ SQ; +LANTUS2P SQ; +MAGN100T2 PO; +VITA2000 PO
[2017-02-04 09:28] LABS: ANION GAP 8 MEQ/L (5-15); BICARBONATE 21.8 MEQ/L (21.0-32.0); BLOOD UREA NITROGEN 68 MG/DL (7-18); CHLORIDE 111 MEQ/L (98-107); GLOMERULAR FILTRATION RATE 16 ML/MIN (>89); GLUCOSE,FASTING 108 MG/DL (74-99); SODIUM (NA) 141 MEQ/L (136-145)
[2017-02-04 16:04] LABS: HEMOGLOBIN A1b 1.9 %; HEMOGLOBIN Ao 83.1 %; HEMOGLOBIN LA1C 2.3 %; HEMOGLOBIN P3 6.7 %
== END ==
LOC: CLAB 08:29
DX: E11.65 Type 2 diabetes mellitus with hyperglycemia (principal)
CPT/HCPCS: 36415; 80048; 83036

== ENCOUNTER → 2017-05-22 | Outpatient (CLI) | payer MEDICARE, MEDICAID ==
[2017-05-22 09:48] LABS: AUTOMATED NEUTROPHIL # 1.7 TH/MM3 (1.8-7.7); BASOPHIL % 1.3 % (0.0-2.0); EOSINOPHIL # 0.1 TH/MM3 (0-0.4); EOSINOPHIL % 2.3 % (0.0-4.0); HEMATOCRIT 21.5 % (35.0-46.0); LYMPH % 39.9 % (9.0-44.0); LYMPHOCYTE # 1.4 TH/MM3 (1.0-4.8); MEAN CELL VOLUME 70.6 FL (80.0-100.0); MEAN CORPUSCULAR HEMOGLOBIN 23.1 PG (27.0-34.0); MEAN CORPUSCULAR HGB CONC 32.7 % (32.0-36.0); MONO % 9.1 % (0.0-8.0); NEUT % 47.4 % (16.0-70.0); PLATELET COUNT 120 TH/MM3 (150-450); RED BLOOD COUNT 3.04 MIL/MM3 (4.00-5.30); RED CELL DISTRIBUTION WIDTH 16.2 % (11.6-17.2); WHITE BLOOD COUNT 3.6 TH/MM3 (4.0-11.0)
[2017-05-22 09:50] LABS: HEMO FLAGS AUTO DIFF
[2017-05-22 10:18] LABS: ACANTHOCYTES 1+ (NORMAL)
[2017-05-22 10:19] LABS: KERATOCYTES OCC (NORMAL); OVALOCYTES 2+ (NORMAL); PLATELET ESTIMATE SMEAR LOW (NORMAL); PLATELET MORPHOLOGY NORMAL (NORMAL); SCAN/DIFF AUTO DIFF CONFIRMED
[2017-05-22 10:57] LABS: ANION GAP 6 MEQ/L (5-15); BICARBONATE 22.8 MEQ/L (21.0-32.0); BLOOD UREA NITROGEN 59 MG/DL (7-18); CHLORIDE 111 MEQ/L (98-107); GLOMERULAR FILTRATION RATE 13 ML/MIN (>89); GLUCOSE,FASTING 108 MG/DL (74-99); POTASSIUM 5.7 MEQ/L (3.5-5.1); SODIUM (NA) 140 MEQ/L (136-145)
[2017-05-22 16:01] LABS: HEMOGLOBIN A1a 1.5 %; HEMOGLOBIN A1b 1.8 %; HEMOGLOBIN Ao 83.3 %; HEMOGLOBIN LA1C 2.3 %; HEMOGLOBIN P3 6.2 %
== END ==
LOC: CLAB 09:12
DX: I12.9 Hypertensive chronic kidney disease with stage 1 through stage 4 chronic kidney disease, or unspecified chronic kidney disease (principal); N18.4 Chronic kidney disease, stage 4 (severe); E11.21 Type 2 diabetes mellitus with diabetic nephropathy; E11.22 Type 2 diabetes mellitus with diabetic chronic kidney disease; E11.65 Type 2 diabetes mellitus with hyperglycemia; E55.9 Vitamin D deficiency, unspecified
CPT/HCPCS: 36415; 80069; 82306; 83036; 83970; 85025

== ENCOUNTER → 2017-08-21 | Outpatient (CLI) | payer MEDICARE, MEDICAID ==
[~2017-08-21] MED LIST changes: -ASPI1TAB69 PO; +CETI10CA3 PO; -FERR325T PO; +FLUT1SPR5 EACH NARE; -VITA200012 PO
[2017-08-21 15:53] LABS: AUTOMATED NEUTROPHIL # 2.4 TH/MM3 (1.8-7.7); BASOPHIL % 0.9 % (0.0-2.0); EOSINOPHIL # 0.1 TH/MM3 (0-0.4); LYMPH % 28.3 % (9.0-44.0); LYMPHOCYTE # 1.1 TH/MM3 (1.0-4.8); MEAN CELL VOLUME 72.8 FL (80.0-100.0); MEAN CORPUSCULAR HEMOGLOBIN 24.5 PG (27.0-34.0); MEAN CORPUSCULAR HGB CONC 33.7 % (32.0-36.0); MONO % 7.8 % (0.0-8.0); PLATELET COUNT 107 TH/MM3 (150-450); RED BLOOD COUNT 2.68 MIL/MM3 (4.00-5.30); WHITE BLOOD COUNT 3.9 TH/MM3 (4.0-11.0)
[2017-08-21 16:15] LABS: POTASSIUM 4.9 MEQ/L (3.5-5.1)
[2017-08-21 16:16] LABS: HEMO FLAGS AUTO DIFF
[2017-08-21 16:20] LABS: ACANTHOCYTES 1+ (NORMAL); PLATELET ESTIMATE SMEAR LOW (NORMAL)
[2017-08-21 16:25] LABS: HEMATOCRIT 19.5 % (35.0-46.0); OVALOCYTES 2+ (NORMAL)
[2017-08-21 16:26] LABS: HELMET CELLS OCC (NORMAL); SCAN/DIFF AUTO DIFF CONFIRMED
[2017-08-24 11:01] LABS: HEPATITIS B SURFACE ANTIBODY 39.6 mIU/mL
== END ==
LOC: CLAB 15:14
PROVIDERS: ATTEND Internal Medicine Hematology & Oncology
DX: I12.9 Hypertensive chronic kidney disease with stage 1 through stage 4 chronic kidney disease, or unspecified chronic kidney disease (principal); N18.5 Chronic kidney disease, stage 5
CPT/HCPCS: 36415; 80069; 85025; 86317; 86803; 87340

== ENCOUNTER → 2017-08-24 | Outpatient (CLI) | payer MEDICARE, MEDICAID ==
[2017-08-24 12:48] LABS: AUTOMATED NEUTROPHIL # 2.4 TH/MM3 (1.8-7.7); EOSINOPHIL # 0.1 TH/MM3 (0-0.4); EOSINOPHIL % 2.3 % (0.0-4.0); LYMPH % 26.5 % (9.0-44.0); MEAN CELL VOLUME 72.7 FL (80.0-100.0); MEAN CORPUSCULAR HEMOGLOBIN 21.9 PG (27.0-34.0); MEAN CORPUSCULAR HGB CONC 30.1 % (32.0-36.0); MONO % 7.9 % (0.0-8.0); NEUT % 62.3 % (16.0-70.0); PLATELET COUNT 117 TH/MM3 (150-450); RED BLOOD COUNT 2.93 MIL/MM3 (4.00-5.30); RED CELL DISTRIBUTION WIDTH 17.7 % (11.6-17.2); WHITE BLOOD COUNT 3.9 TH/MM3 (4.0-11.0)
[2017-08-24 13:08] LABS: HEMO FLAGS AUTO DIFF
[2017-08-24 13:09] LABS: HEMATOCRIT 21.3 % (35.0-46.0)
[2017-08-24 13:31] LABS: ACANTHOCYTES 1+ (NORMAL); OVALOCYTES 2+ (NORMAL)
[2017-08-24 13:32] LABS: PLATELET ESTIMATE SMEAR LOW (NORMAL); PLATELET MORPHOLOGY NORMAL (NORMAL); SCAN/DIFF AUTO DIFF CONFIRMED
== END ==
LOC: CLAB 12:23
PROVIDERS: ATTEND Internal Medicine Nephrology
DX: N18.5 Chronic kidney disease, stage 5 (principal)
CPT/HCPCS: 36415; 85025

== ENCOUNTER 2017-08-25 15:10 | Observation (INO) | payer MEDICARE, MEDICAID ==
[~2017-08-25] VITALS: Ht 166.4 cm; Wt 75.0 kg
[2017-08-25] VITALS (10 sets, daily range): BP systolic 151–218; BP diastolic 66–88; PULSE 62–73; RESP 15–23; TEMP 97.9–98.3; O2SAT 99–100
--- NOTE | 2017-08-25 15:18 | PD ---
Physical Exam Time Seen by Provider: 15:17 Narrative 72-year-old female sent by Dr. Rdz with low hemoglobin and wants her to have blood transfusion. Hemoglobin of 6.4. Patient seen in triage. Vital signs reviewed. Patient taken to medical bed. Data Data Last Documented VS Vital Signs Date Time Temp Pulse Resp B/P (MAP) Pulse Ox O2 Delivery O2 Flow Rate FiO2 08/25/17 15:13 98.2 70 15 206/86 (126) 99 MDM Supervised Visit with EMILY: Zeny Simmons Aug 25, 2017 15:18
--- NOTE | 2017-08-25 15:50 | PD ---
HPI Chief Complaint: Abnormal Results Time Seen by Provider: 15:37 Travel History International Travel<30 days: No Contact w/Intl Traveler<30days: No Traveled to known affect area: No History of Present Illness HPI 72-year-old female with a past history of chronic renal sufficiency, anemia, hypertension, CAD, type 2 diabetes presents to the emergency department today for low hemoglobin. Patient had lab work completed by her search advertising strategist, Dr. Olmos. She is recommended to come to the emergency department for a blood transfusion. Patient reports history of chronic anemia. She denies any history of GI bleeding. She does report dark stools, but states she takes iron supplements. Patient states that she has generalized weakness, which is chronic for her. She does feel at her baseline. No headaches. No fevers or chills. No chest pain or shortness breath. No abdominal pain. Nausea, vomiting, diarrhea. Patient denies any hematemesis or bright red blood in her stools. She states she has never had dialysis. She got a fistula in her left upper arm, but then her renal function improved she never had to undergo dialysis. PFSH Past Medical History Hx Anticoagulant Therapy: Yes Anemia: Yes Arthritis: No Asthma: No Autoimmune Disease: No Blood Disorders: Yes (ANEMIA) Anxiety: No Depression: No Heart Rhythm Problems: No Cancer: No Cardiac Catheterization: Yes Cardiovascular Problems: Yes High Cholesterol: Yes Chemotherapy: No Chest Pain: No Congestive Heart Failure: No COPD: No Cerebrovascular Accident: No Diabetes: Yes Patient Takes Glucophage: No Endocrine: Yes Gastrointestinal Disorders: Yes (HX GERD - NOW RESOLVED ) GERD: Yes Glaucoma: No Genitourinary: Yes Headaches: No Hepatitis: No Hiatal Hernia: No Hypertension: Yes Immune Disorder: No Implanted Vascular Access Dvce: Yes Kidney Stones: No Musculoskeletal: Yes (ARTHRITIS ) Neurologic: Yes (MILD NEUROPATHY BOTH FEET) Psychiatric: No Reproductive: No Respiratory: No Integumentary: No Migraines: No Myocardial Infarction: No Radiation Therapy: No Renal Failure: Yes Seizures: No Sleep Apnea: No Thyroid Disease: Yes Ulcer: No PNEUMOCCOCAL Vaccine (Year): 1 Menopausal: Yes : 3 Para: 3 Tubal Ligation: Yes Past Surgical History Abdominal Surgery: Yes (APPENDECTOMY) AICD: No Appendectomy: Yes Arteriovenous Shunt: No Body Medical Devices: HERBIE & STENT RIGHT LOWER EXREMITY; Cardiac Surgery: No Section: Yes (X3) Cholecystectomy: Yes Coronary Artery Bypass Graft: No Ear Surgery: No Endocrine Surgery: Yes (THYROID SURGERY 2003) Eye Surgery: Yes (CHARLES CATARACT EXTRACTION WITH LENS IMPLANT) Genitourinary Surgery: Yes (CHOLECYSTECTOMY ) Gynecologic Surgery: Yes (3 C-SECTIONS IN , TUBAL LIGATION) Insulin Pump: No Joint Replacement: No Neurologic Surgery: Yes (MULTIPLE BACK SURGERIES,NECK SX X2 HERBIE RLE) Oral Surgery: No Pacemaker: No Thoracic Surgery: No Other Surgery: Yes (/GALLBLADDER/BACK/NECK/APPENDECTOMY/THYROID) Family History Family Myocardial Infarction: Yes (FATHER HAD [place] AND VALVE REPLACEMENT) Social History Alcohol Use: No Tobacco Use: No Substance Use: No Allergies-Medications (Allergen,Severity, Reaction): Coded Allergies: Iodinated Contrast- Oral and IV Dye (Unverified Allergy, Severe, 08/25/17) CANNOT USE DUE TO END STAGE RENAL FAILURE Sulfa (Sulfonamide Antibiotics) (Unverified Allergy, Severe, PALPATIONS, ) acetaminophen (Unverified Allergy, Unknown, NAUSEA & VOMITTING, 08/25/17) hydrocodone (Unverified Allergy, Unknown, NAUSEA & VOMITTING, 08/25/17) Uncoded Allergies: MORPHINE SULFATE (Adverse Reaction, Unknown, NAUSEA & VOMITTING, 07/23/15) Reported Meds & Prescriptions Reported Meds & Active Scripts Active Flonase Nasal [place] (Fluticasone Nasal [place]) 50 Mcg/Act [place] 50 Mcg EACH NARE BID [pet] Ms. Brantley needs her pet for emotional support and stability. Reported Kionex (Sodium Polystyrene Sulfonate) 15 Gm/[address] (Ferrous Sulfate) 324 Mg Tabdr 324 Mg PO BID Aspirin 81 Mg Chew 81 Mg CHEW DAILY Vitamin D3 (Cholecalciferol) 2,000 Unit Cap 2,000 Units PO DAILY Lantus Inj (Insulin Glargine) 100 Unit/Ml Inj 4 Units SQ DAILY Allopurinol 100 Mg Tab 100 Mg PO DAILY Isosorbide Mononitrate 10 Mg Tab 10 Mg PO TID Take 2 doses 7 hours apart. Valsartan 320 Mg Tab 320 Mg PO DAILY Carvedilol 12.5 Mg Tab 12.5 Mg PO BID Clopidogrel (Clopidogrel Bisulfate) 75 Mg Tab 75 Mg PO DAILY Hydralazine (Hydralazine HCl) 100 Mg Tab 100 Mg PO Q8HR Take with meals Review of Systems Except as stated in HPI: all other systems reviewed are Neg Physical Exam Narrative GENERAL: Well-nourished, well-developed female patient, afebrile. SKIN: Focused skin assessment warm/dry. HEAD: Normocephalic. Atraumatic. EYES: No scleral icterus. No injection or drainage. NECK: Supple, trachea midline. No JVD or lymphadenopathy. CARDIOVASCULAR: Regular rate and rhythm without murmurs, gallops, or rubs. RESPIRATORY: Breath sounds equal bilaterally. No accessory muscle use. Lungs sounds are clear to auscultation. GASTROINTESTINAL: Abdomen soft, non-tender, nondistended. MUSCULOSKELETAL: No cyanosis, or edema. BACK: Nontender without obvious deformity. No CVA tenderness. RECTAL EXAM: No masses or tenderness, stool is brown. This exam was done with BISI Sanderson, at bedside. Hemoccult was negative. Data Data Last Documented VS Vital Signs Date Time Temp Pulse Resp B/P (MAP) Pulse Ox O2 Delivery O2 Flow Rate FiO2 08/25/17 17:40 71 18 193/80 (117) 100 Room Air 08/25/17 15:13 98.2 Orders Orders Complete Blood Count With Diff (08/25/17 15:47) Comprehensive Metabolic Panel (08/25/17 15:47) Lipase (08/25/17 15:47) Prothrombin Time / Inr (Pt) (08/25/17 15:47) Act Partial Throm Time (Ptt) (08/25/17 15:47) Type And Screen (08/25/17 15:47) Ecg Monitoring (08/25/17 15:47) Iv Access Insert/Monitor (08/25/17 15:47) Oximetry (08/25/17 15:47) Sodium Chloride 0.9% Flush (Ns Flush) (08/25/17 16:00) Iron/Tibc Profile (08/25/17 16:30) Ferritin (08/25/17 16:30) Red Blood Cells (Rbc) (08/25/17 17:29) Blood Product Administration (08/25/17 17:29) Sodium Chlor 0.9% 250 Ml Inj (Ns 250 Ml (08/25/17 17:30) Furosemide Inj (Lasix Inj) (08/25/17 17:30) Admit Order (Ed Use Only) (08/25/17 17:54) Labs Laboratory Tests Test 08/25/17 15:55 White Blood Count 4.3 TH/MM3 Red Blood Count 2.94 MIL/MM3 Hemoglobin 6.7 GM/DL Hematocrit 21.4 % Mean Corpuscular Volume 72.7 FL Mean Corpuscular Hemoglobin 22.9 PG Mean Corpuscular Hemoglobin Concent 31.5 % Red Cell Distribution Width 18.1 % Platelet Count 108 TH/MM3 Mean Platelet Volume 9.2 FL Neutrophils (%) (Auto) 55.0 % Lymphocytes (%) (Auto) 33.4 % Monocytes (%) (Auto) 8.5 % Eosinophils (%) (Auto) 2.2 % Basophils (%) (Auto) 0.9 % Neutrophils # (Auto) 2.3 TH/MM3 Lymphocytes # (Auto) 1.4 TH/MM3 Monocytes # (Auto) 0.4 TH/MM3 Eosinophils # (Auto) 0.1 TH/MM3 Basophils # (Auto) 0.0 TH/MM3 CBC Comment AUTO DIFF Prothrombin Time 10.7 SEC Prothromb Time International Ratio 1.0 RATIO Activated Partial Thromboplast Time 24.7 SEC Blood Urea Nitrogen 51 MG/DL Creatinine 3.03 MG/DL Random Glucose 153 MG/DL Total Protein 6.9 GM/DL Albumin 3.8 GM/DL Calcium Level 9.2 MG/DL Alkaline Phosphatase 73 U/L Aspartate Amino Transf (AST/SGOT) 26 U/L Alanine Aminotransferase (ALT/SGPT) 16 U/L Total Bilirubin 0.3 MG/DL Sodium Level 140 MEQ/L Potassium Level 5.4 MEQ/L Chloride Level 112 MEQ/L Carbon Dioxide Level 20.0 MEQ/L Anion Gap 8 MEQ/L Estimat Glomerular Filtration Rate 18 ML/MIN Lipase 202 U/L [facility] Medical Decision Making Medical Screen Exam Complete: Yes Emergency Medical Condition: Yes Medical Record Reviewed: Yes Differential Diagnosis Anemia of chronic disease versus GI bleed versus generalized weakness Narrative Course 72-year-old female presents to the emergency department for evaluation of low hemoglobin. Patient labs and yesterday showed hemoglobin of 6.4, hematocrit 21.3. CBC, CMP, lipase, PTT, PTT/INR, type and screen are ordered and pending. His hemoglobin as low as it was yesterday, I do suspect the patient received a blood transfusion. She verbalizes agreement to this. CBC shows hemoglobin 6.7 hematocrit 21.4. CMP shows hypokalemia 5.4, but hemolysis is noted. BUN 51, creatinine 3.03, this appears chronic for patient. Lipase is 202. Coags are unremarkable. 2 units PRBCs are ordered with Lasix 20 mg IV in between units. Residents are paged for admission. Dr. Kirk accepted admission. Diagnosis Primary Impression: Anemia of chronic renal failure Admitting Information Admitting Physician Requests: Observation Velma Hinojosa Aug 25, 2017 15:49
[2017-08-25] MEDS ORDERED: SODIUM CHLORIDE 0.9% FLUSH 10 ML FLUSH IVF PRN (16:00)
[2017-08-25 17:03] LABS: APTT (PATIENT) 24.7 SEC (24.3-30.1); PROTHROMBIN TIME - PATIENT 10.7 SEC (9.8-11.6)
[2017-08-25 17:10] LABS: ALT (GPT) 16 U/L (10-53)
[2017-08-25 17:13] LABS: ALKALINE PHOSPHATASE 73 U/L (45-117); TOTAL BILIRUBIN ADULT 0.3 MG/DL (0.2-1.0)
[2017-08-25 17:15] LABS: AUTOMATED NEUTROPHIL # 2.3 TH/MM3 (1.8-7.7); BASOPHIL % 0.9 % (0.0-2.0); EOSINOPHIL # 0.1 TH/MM3 (0-0.4); EOSINOPHIL % 2.2 % (0.0-4.0); LYMPH % 33.4 % (9.0-44.0); LYMPHOCYTE # 1.4 TH/MM3 (1.0-4.8); MEAN CELL VOLUME 72.7 FL (80.0-100.0); MEAN CORPUSCULAR HEMOGLOBIN 22.9 PG (27.0-34.0); MEAN CORPUSCULAR HGB CONC 31.5 % (32.0-36.0); MONO % 8.5 % (0.0-8.0); PLATELET COUNT 108 TH/MM3 (150-450); RED BLOOD COUNT 2.94 MIL/MM3 (4.00-5.30); RED CELL DISTRIBUTION WIDTH 18.1 % (11.6-17.2); WHITE BLOOD COUNT 4.3 TH/MM3 (4.0-11.0)
[2017-08-25 17:24] LABS: HEMATOCRIT 21.4 % (35.0-46.0); HEMO FLAGS AUTO DIFF
[2017-08-25 17:30] LABS: ANION GAP 8 MEQ/L (5-15); AST (GOT) 26 U/L (15-37); BLOOD UREA NITROGEN 51 MG/DL (7-18); CHLORIDE 112 MEQ/L (98-107); GLOMERULAR FILTRATION RATE 18 ML/MIN (>89); SODIUM (NA) 140 MEQ/L (136-145)
[2017-08-25] MEDS ORDERED: SODIUM CHLOR 0.9% 250 ML INJ 250 ML IV ONE (17:30)
[2017-08-25] MEDS ORDERED: FUROSEMIDE 20 MG/2 ML VIAL IV PUSH ONE (17:30)
[2017-08-25 17:31] LABS: POTASSIUM 5.4 MEQ/L (3.5-5.1)
--- NOTE | 2017-08-25 17:58 | HHI.HP ---
[facility] Service Family Medicine Primary Care Physician Flori Benito MD Admission Diagnosis anemia Diagnoses: International Travel<30 Days: No Contact w/Intl Traveler<30days: No Known Affected Area: No Past Family Social History Allergies: Coded Allergies: Iodinated Contrast- Oral and IV Dye (Unverified Allergy, Severe, 08/25/17) CANNOT USE DUE TO END STAGE RENAL FAILURE Sulfa (Sulfonamide Antibiotics) (Unverified Allergy, Severe, PALPATIONS, ) acetaminophen (Unverified Allergy, Unknown, NAUSEA & VOMITTING, 08/25/17) hydrocodone (Unverified Allergy, Unknown, NAUSEA & VOMITTING, 08/25/17) Uncoded Allergies: MORPHINE SULFATE (Adverse Reaction, Unknown, NAUSEA & VOMITTING, 07/23/15) Physical Exam Vital Signs Vital Signs Date Time Temp Pulse Resp B/P (MAP) Pulse Ox O2 Delivery O2 Flow Rate FiO2 08/25/17 17:40 71 18 193/80 (117) 100 Room Air 08/25/17 17:39 70 23 206/87 (126) 100 Room Air 08/25/17 15:13 98.2 70 15 206/86 (126) 99 Physical Exam GENERAL: This is a well-nourished, well-developed patient, in no apparent distress. SKIN: No rashes, ecchymoses or lesions. Cool and dry. HEAD: Atraumatic. Normocephalic. No temporal or scalp tenderness. EYES: Pupils equal round and reactive. Extraocular motions intact. No scleral icterus. No injection or drainage. ENT: Nose without bleeding, purulent drainage or septal hematoma. Throat without erythema, tonsillar hypertrophy or exudate. Uvula midline. Airway patent. NECK: Trachea midline. No JVD or lymphadenopathy. Supple, nontender, no meningeal signs. CARDIOVASCULAR: Regular rate and rhythm without murmurs, gallops, or rubs. RESPIRATORY: Clear to auscultation. Breath sounds equal bilaterally. No wheezes , rales, or rhonchi. GASTROINTESTINAL: Abdomen soft, non-tender, nondistended. No hepato-splenomegaly , or palpable masses. No guarding. MUSCULOSKELETAL: Extremities without clubbing, cyanosis, or edema. No joint tenderness, effusion, or edema noted. No calf tenderness. Negative Homans sign bilaterally. NEUROLOGICAL: Awake and alert. Cranial nerves II through XII intact. Motor and sensory grossly within normal limits. Five out of 5 muscle strength in all muscle groups. Normal speech. Laboratory Laboratory Tests Test 08/25/17 15:55 White Blood Count 4.3 Red Blood Count 2.94 Hemoglobin 6.7 Hematocrit 21.4 Mean Corpuscular Volume 72.7 Mean Corpuscular Hemoglobin 22.9 Mean Corpuscular Hemoglobin Concent 31.5 Red Cell Distribution Width 18.1 Platelet Count 108 Mean Platelet Volume 9.2 Neutrophils (%) (Auto) 55.0 Lymphocytes (%) (Auto) 33.4 Monocytes (%) (Auto) 8.5 Eosinophils (%) (Auto) 2.2 Basophils (%) (Auto) 0.9 Neutrophils # (Auto) 2.3 Lymphocytes # (Auto) 1.4 Monocytes # (Auto) 0.4 Eosinophils # (Auto) 0.1 Basophils # (Auto) 0.0 CBC Comment AUTO DIFF Prothrombin Time 10.7 Prothromb Time International Ratio 1.0 Activated Partial Thromboplast Time 24.7 Blood Urea Nitrogen 51 Creatinine 3.03 Random Glucose 153 Total Protein 6.9 Albumin 3.8 Calcium Level 9.2 Alkaline Phosphatase 73 Aspartate Amino Transf (AST/SGOT) 26 Alanine Aminotransferase (ALT/SGPT) 16 Total Bilirubin 0.3 Sodium Level 140 Potassium Level 5.4 Chloride Level 112 Carbon Dioxide Level 20.0 Anion Gap 8 Estimat Glomerular Filtration Rate 18 Lipase 202 Result Diagram: 08/25/17 1555 08/25/17 1555 Caprini VTE Risk Assessment Caprini Risk Assessment Model Point Value = 1 Point Value = 2 Point Value = 3 Point Value = 5 Age 41-60 Minor surgery BMI > 25 kg/m2 Swollen legs Varicose veins or History of unexplained or recurrent spontaneous Oral contraceptives or hormone replacement Sepsis (< 1 month) Serious lung disease, including pneumonia (< 1 month) Abnormal pulmonary function Acute myocardial infarction Congestive heart failure (< 1 month) History of inflammatory bowel disease Medical patient at bed rest Age 61-74 Arthroscopic surgery Major open surgery (> 45 min) Laparoscopic surgery (> 45 min) Malignancy Confined to bed (> 72 hours) Immobilizing plaster cast Central venous access Age >= 75 History of VTE Family history of VTE Factor V Leiden Prothrombin [id number] Lupus anticoagulant Anticardiolipin antibodies Elevated serum homocysteine Heparin-induced thrombocytopenia Other congenital or acquired thrombophilia Stroke (< 1 month) Elective arthroplasty Hip, pelvis, or leg fracture Acute spinal cord injury (< 1 month) Prophylaxis Regimen Total Risk Factor Score Risk Level Prophylaxis Regimen 0-1 Low Early ambulation 2 Moderate Order ONE of the following: *Sequential Compression Device (SCD) *Heparin 5000 units SQ BID 3-4 Higher Order ONE of the following medications: *Heparin 5000 units SQ TID *Enoxaparin/Lovenox 40 mg SQ daily (WT < 150 kg, CrCl > 30 mL/min) *Enoxaparin/Lovenox 30 mg SQ daily (WT < 150 kg, CrCl > 10-29 mL/min) *Enoxaparin/Lovenox 30 mg SQ BID (WT < 150 kg, CrCl > 30 mL/min) AND/OR *Sequential Compression Device (SCD) 5 or more Highest Order ONE of the following medications: *Heparin 5000 units SQ TID (Preferred with Epidurals) *Enoxaparin/Lovenox 40 mg SQ daily (WT < 150 kg, CrCl > 30 mL/min) *Enoxaparin/Lovenox 30 mg SQ daily (WT < 150 kg, CrCl > 10-29 mL/min) *Enoxaparin/Lovenox 30 mg SQ BID (WT < 150 kg, CrCl > 30 mL/min) AND *Sequential Compression Device (SCD) Physician Certification Order for Inpatient Services The services are ordered in accordance with Medicare regulations or non- Medicare payer requirements, as applicable. In the case of services not specified as inpatient-only, they are appropriately provided as inpatient services in accordance with the 2-midnight benchmark. days is the estimated time the patient will need to remain in the hospital, assuming treatment plan goals are met and no additional complications. Ramon Kirk MD R3 Aug 25, 2017 17:58
[2017-08-25 18:02] LABS: KERATOCYTES 1+ (NORMAL); OVALOCYTES 2+ (NORMAL)
--- NOTE | 2017-08-25 18:04 | HHI.HP ---
[facility] Service Family Medicine Primary Care Physician Flori Benito MD Admission Diagnosis anemia Diagnoses: International Travel<30 Days: No Contact w/Intl Traveler<30days: No Known Affected Area: No History of Present Illness 72 year old female with a history of chronic kidney disease, anemia of chronic disease, hypertension, coronary artery disease, and type II diabetes was sent to the ED by her paving stone installer, Dr. Olmos, for low hemoglobin. Her hemoglobin is 6.7. She is currently asymptomatic. She has chronic fatigue but no increased fatigue. She has no lightheadedness with standing, palpitations, or lightheadedness. She feels at her baseline. She has chronic dark stools but takes iron supplements, no obvious blood in her stool. Hemoccult in ED is negative. She has no headaches, blurry vision, fevers, chills, chest pain, shortness of breath, abdominal pain, nausea, vomiting, diarrhea. She does not get dialysis. Her kidney function is at her baseline. She also has high potassium but this is also chronic. Review of Systems Constitutional: COMPLAINS OF: Fatigue, Weight loss (intentional), DENIES: Weight gain, Dizziness, Change in appetite Endocrine: DENIES: Polydipsia, Polyuria, Polyphagia Eyes: DENIES: Blurred vision, Diplopia, Eye inflammation, Double Vision Ears, nose, mouth, throat: DENIES: Throat pain, Running Nose Respiratory: DENIES: Cough, Wheezing, Hemoptysis, Shortness of breath Cardiovascular: DENIES: Chest pain, Syncope, Dyspnea on Exertion Gastrointestinal: DENIES: Abdominal pain, Black stools, Bloody stools, Diarrhea , Nausea, Difficulty Swallowing Genitourinary: DENIES: Urinary frequency, Urinary incontinence, Urgency Musculoskeletal: DENIES: Joint pain, Back pain, Neck pain Hematologic/lymphatic: DENIES: Lymphadenopathy Neurologic: DENIES: Headache, Seizures Psychiatric: DENIES: Anxiety, Depression Past Family Social History Past Medical History CKD not on dialysis Dr. Olmos paving stone installer Anemia of CKD Never on dialysis Has fistula on left arm High potassium, takes Kianex Diabetes type II: 4 units Lantus AM, not on Humalog anymore Coronary artery disease, no coronary stents PAD: has stents Past Surgical History 3 prior C-sections bilateral tubal ligation cholecystectomy eye surgery related to cataracts thyroid surgery in 2003 right lower extremity ORIF appendectomy history of neck surgery history of back surgery. Reported Medications Reported Meds & Active Scripts Active Flonase Nasal [place] (Fluticasone Nasal [place]) 50 Mcg/Act [place] 50 Mcg EACH NARE BID [pet] Ms. Brantley needs her pet for emotional support and stability. Reported Kionex (Sodium Polystyrene Sulfonate) 15 Gm/[address] (Ferrous Sulfate) 324 Mg Tabdr 324 Mg PO BID Aspirin 81 Mg Chew 81 Mg CHEW DAILY Vitamin D3 (Cholecalciferol) 2,000 Unit Cap 2,000 Units PO DAILY Lantus Inj (Insulin Glargine) 100 Unit/Ml Inj 4 Units SQ DAILY Allopurinol 100 Mg Tab 100 Mg PO DAILY Isosorbide Mononitrate 10 Mg Tab 10 Mg PO TID Take 2 doses 7 hours apart. Valsartan 320 Mg Tab 320 Mg PO DAILY Carvedilol 12.5 Mg Tab 12.5 Mg PO BID Clopidogrel (Clopidogrel Bisulfate) 75 Mg Tab 75 Mg PO DAILY Hydralazine (Hydralazine HCl) 100 Mg Tab 100 Mg PO Q8HR Take with meals Allergies: Coded Allergies: Iodinated Contrast- Oral and IV Dye (Unverified Allergy, Severe, 08/25/17) CANNOT USE DUE TO END STAGE RENAL FAILURE Sulfa (Sulfonamide Antibiotics) (Unverified Allergy, Severe, PALPATIONS, ) acetaminophen (Unverified Allergy, Unknown, NAUSEA & VOMITTING, 08/25/17) hydrocodone (Unverified Allergy, Unknown, NAUSEA & VOMITTING, 08/25/17) Uncoded Allergies: MORPHINE SULFATE (Adverse Reaction, Unknown, NAUSEA & VOMITTING, 07/23/15) Active Ordered Medications Inpatient Medications Allopurinol (Zyloprim) 100 mg DAILY PO ; Start 08/26/17 at 09:00; Status UNV Aspirin (Aspirin Chew) 81 mg DAILY CHEW ; Start 08/26/17 at 09:00; Status UNV Bisacodyl (Dulcolax Supp) 10 mg DAILY PRN RECTAL SEVERE CONSITIPATION; Start at 18:45; Status UNV Carvedilol (Coreg) 12.5 mg BID PO ; Start 08/25/17 at 21:00; Status UNV Cholecalciferol (Vitamin D3) 2,000 units DAILY PO ; Start 08/26/17 at 09:00; Status UNV Clopidogrel Bisulfate (Plavix) 75 mg DAILY PO ; Start 08/26/17 at 09:00; Status UNV Furosemide (Lasix Inj) 20 mg ONCE ONCE IV PUSH ; Start 08/25/17 at 17:30; Stop 08/25/17 at 17:31; Status DC Hydralazine HCl (Apresoline) 100 mg Q8HR PO ; Start 08/25/17 at 22:00; Status UNV Insulin Glargine (Lantus Inj) 4 units DAILY SQ ; Start 08/26/17 at 09:00; Status UNV Isosorbide Mononitrate (Ismo) 10 mg TID PO ; Start 08/26/17 at 09:00; Status UNV Lactulose (Lactulose Liq) 30 ml DAILY PRN PO SEVERE CONSITIPATION; Start at 18:45; Status UNV Magnesium Hydroxide (Milk Of Magnesia Liq) 30 ml Q12H PRN PO MILD - MODERATE CONSTIPATION; Start 08/25/17 at 18:45; Status UNV Naloxone HCl (Narcan Inj) 0.4 mg UNSCH PRN IV PUSH SEE LABEL COMMENTS; Start at 18:45; Status UNV Non-Formulary Medication 50 mcg BID EACH NARE ; Start 08/25/17 at 21:00; Status UNV Ondansetron HCl (Zofran Inj) 4 mg Q6H PRN IVP NAUSEA OR VOMITING; Start at 18:45; Status UNV Senna/Docusate Sodium (Kim-Colace) 1 tab BID PO ; Start 08/25/17 at 21:00; Status UNV Sennosides (Senokot) 17.2 mg Q12H PRN PO MODERATE - SEVERE CONSTIPATION; Start 08/25/17 at 18:45; Status UNV Sodium Chloride (NS Flush) 2 ml BID IV FLUSH ; Start 08/25/17 at 21:00; Status UNV Valsartan (Diovan) 320 mg DAILY PO ; Start 08/26/17 at 09:00; Status UNV Family History Brother: CKD on dialysis Mother: Heart disease Father: DM type 2, heart disease Social History Tobacco: none, quit smokeless tobacco in 2007 Alcohol: none Illicit Drug Use: none Live by self, daughter nearby Physical Exam Vital Signs Vital Signs Date Time Temp Pulse Resp B/P (MAP) Pulse Ox O2 Delivery O2 Flow Rate FiO2 08/25/17 17:40 71 18 193/80 (117) 100 Room Air 08/25/17 17:39 70 23 206/87 (126) 100 Room Air 08/25/17 15:13 98.2 70 15 206/86 (126) 99 Physical Exam GENERAL: No distress, sitting up in bed SKIN: Palms pale, no trashes or lesions HEAD: Atraumatic. Normocephalic. No temporal or scalp tenderness. EYES: Pupils equal round and reactive. Extraocular motions intact. No scleral icterus. No injection or drainage. Conjunctiva pale. ENT: Nose without bleeding, purulent drainage or septal hematoma. Throat without erythema, tonsillar hypertrophy or exudate. Uvula midline. Airway patent. NECK: Trachea midline. No JVD or lymphadenopathy. Supple, nontender, no meningeal signs. CARDIOVASCULAR: Regular rate and rhythm without murmurs, gallops, or rubs. Has left upper extremity AV fistula with bruit. RESPIRATORY: Clear to auscultation. Breath sounds equal bilaterally. No wheezes , rales, or rhonchi. GASTROINTESTINAL: Abdomen soft, non-tender, nondistended. No hepato-splenomegaly , or palpable masses. No guarding. MUSCULOSKELETAL: Extremities without clubbing, cyanosis, or edema. No joint tenderness, effusion, or edema noted. No calf tenderness. NEUROLOGICAL: Awake and alert. Cranial nerves II through XII intact. Motor and sensory grossly within normal limits. Laboratory Laboratory Tests Test 08/25/17 15:55 White Blood Count 4.3 Red Blood Count 2.94 Hemoglobin 6.7 Hematocrit 21.4 Mean Corpuscular Volume 72.7 Mean Corpuscular Hemoglobin 22.9 Mean Corpuscular Hemoglobin Concent 31.5 Red Cell Distribution Width 18.1 Platelet Count 108 Mean Platelet Volume 9.2 Neutrophils (%) (Auto) 55.0 Lymphocytes (%) (Auto) 33.4 Monocytes (%) (Auto) 8.5 Eosinophils (%) (Auto) 2.2 Basophils (%) (Auto) 0.9 Neutrophils # (Auto) 2.3 Lymphocytes # (Auto) 1.4 Monocytes # (Auto) 0.4 Eosinophils # (Auto) 0.1 Basophils # (Auto) 0.0 CBC Comment AUTO DIFF Prothrombin Time 10.7 Prothromb Time International Ratio 1.0 Activated Partial Thromboplast Time 24.7 Blood Urea Nitrogen 51 Creatinine 3.03 Random Glucose 153 Total Protein 6.9 Albumin 3.8 Calcium Level 9.2 Alkaline Phosphatase 73 Aspartate Amino Transf (AST/SGOT) 26 Alanine Aminotransferase (ALT/SGPT) 16 Total Bilirubin 0.3 Sodium Level 140 Potassium Level 5.4 Chloride Level 112 Carbon Dioxide Level 20.0 Anion Gap 8 Estimat Glomerular Filtration Rate 18 Lipase 202 Result Diagram: 08/25/17 1555 08/25/17 1555 Septic Shock Reassessment Heart: Regular rate and rhythm Lungs: Clear Skin: Warm Capillary Refill: <2 seconds Caprini VTE Risk Assessment Caprini VTE Risk Assessment: Mod/High Risk (score >= 2) VTE Pharm Contraindication: severe anemia Caprini Risk Assessment Model Point Value = 1 Point Value = 2 Point Value = 3 Point Value = 5 Age 41-60 Minor surgery BMI > 25 kg/m2 Swollen legs Varicose veins or History of unexplained or recurrent spontaneous Oral contraceptives or hormone replacement Sepsis (< 1 month) Serious lung disease, including pneumonia (< 1 month) Abnormal pulmonary function Acute myocardial infarction Congestive heart failure (< 1 month) History of inflammatory bowel disease Medical patient at bed rest Age 61-74 Arthroscopic surgery Major open surgery (> 45 min) Laparoscopic surgery (> 45 min) Malignancy Confined to bed (> 72 hours) Immobilizing plaster cast Central venous access Age >= 75 History of VTE Family history of VTE Factor V Leiden Prothrombin [id number] Lupus anticoagulant Anticardiolipin antibodies Elevated serum homocysteine Heparin-induced thrombocytopenia Other congenital or acquired thrombophilia Stroke (< 1 month) Elective arthroplasty Hip, pelvis, or leg fracture Acute spinal cord injury (< 1 month) Prophylaxis Regimen Total Risk Factor Score Risk Level Prophylaxis Regimen 0-1 Low Early ambulation 2 Moderate Order ONE of the following: *Sequential Compression Device (SCD) *Heparin 5000 units SQ BID 3-4 Higher Order ONE of the following medications: *Heparin 5000 units SQ TID *Enoxaparin/Lovenox 40 mg SQ daily (WT < 150 kg, CrCl > 30 mL/min) *Enoxaparin/Lovenox 30 mg SQ daily (WT < 150 kg, CrCl > 10-29 mL/min) *Enoxaparin/Lovenox 30 mg SQ BID (WT < 150 kg, CrCl > 30 mL/min) AND/OR *Sequential Compression Device (SCD) 5 or more Highest Order ONE of the following medications: *Heparin 5000 units SQ TID (Preferred with Epidurals) *Enoxaparin/Lovenox 40 mg SQ daily (WT < 150 kg, CrCl > 30 mL/min) *Enoxaparin/Lovenox 30 mg SQ daily (WT < 150 kg, CrCl > 10-29 mL/min) *Enoxaparin/Lovenox 30 mg SQ BID (WT < 150 kg, CrCl > 30 mL/min) AND *Sequential Compression Device (SCD) Assessment and Plan Assessment and Plan 72 year old female with chronic kidney disease, coronary artery disease, diabetes, and chronic anemia reports to ED with hemoglobin less than 7, sent by her paving stone installer for blood transfusion. Code Status FULL CODE Discussed Condition With Velma Hinojosa Problem List: (1) Anemia in chronic kidney disease (CKD) ICD Codes: N18.9 - Chronic kidney disease, unspecified; D63.1 - Anemia in chronic kidney disease Status: Acute Plan: Has anemia of chronic kidney disease, baseline hemoglobin has been trending down, in the 7's at baseline. Asymptomatic currently, except chronic fatigue. Hgb currently 6.7. - Iron studies pending. - Continue ferrous sulfate - 2 units packed red blood cells with Lasix between units - Repeat H&H after transfusion (2) HTN (hypertension) ICD Codes: I10 - Essential (primary) hypertension Status: Chronic Plan: - Hydralazine 100 mg q8hrs - Clonidine PRN - Carvedilol 12.5 bid (3) Chronic kidney disease, stage 5, kidney failure ICD Codes: N18.5 - Chronic kidney disease, stage 5, kidney failure Status: Chronic Plan: Creatinine at baseline, not currently on dialysis. Baseline creatinine about 4.0. Dr. Olmos is her paving stone installer. - Check electrolytes in the morning with renal function - Avoid nephrotoxic agents (4) CAD (coronary artery disease) ICD Codes: I25.10 - Atherosclerotic heart disease of [place] coronary artery without angina pectoris Status: Chronic Plan: - Continue aspirin and plavix (5) DM type 2 (diabetes mellitus, type 2) ICD Codes: E11.9 - Type 2 diabetes mellitus without complications Status: Chronic Plan: - Lantus 4 units in AM - Novolog low dose sliding scale (6) Nutrition, metabolism, and development symptoms ICD Codes: R63.8 - Other symptoms and signs concerning food and fluid intake Status: Acute Plan: - Renal diet - Potassium mildly elevated, chronic - Bilateral SCD's for DVT prophylaxis Problem Qualifiers (1) Anemia in chronic kidney disease (CKD): Qualified Codes: N18.5 - Chronic kidney disease, stage 5; D63.1 - Anemia in chronic kidney disease Ramon Kirk MD R3 Aug 25, 2017 18:04
[2017-08-25 18:05] LABS: PLATELET ESTIMATE SMEAR LOW (NORMAL); PLATELET MORPHOLOGY NORMAL (NORMAL); SCAN/DIFF AUTO DIFF CONFIRMED; TEARDROP RBCS 1+ (NORMAL)
[2017-08-25] MEDS ORDERED: BISACODYL 10 MG SUPP RECTAL PRN (18:45)
[2017-08-25] MEDS ORDERED: ONDANSETRON HCL 4 MG/2 ML VIAL IVP PRN (18:45)
[2017-08-25] MEDS ORDERED: SENNOSIDES 8.6 MG TAB PO PRN (18:45)
[2017-08-25] MEDS ORDERED: SODIUM CHLORIDE 0.9% FLUSH 10 ML FLUSH IV FLUSH PRN (18:45)
[2017-08-25] MEDS ORDERED: MAGNESIUM HYDROXIDE SUSP 30 ML CUP PO PRN (18:45)
[2017-08-25] MEDS ORDERED: NALOXONE HCL 0.4 MG/ML AMP IV PUSH PRN (18:45)
[2017-08-25] MEDS ORDERED: LACTULOSE SYRUP 20 GM/30 ML CUP PO PRN (18:45)
[2017-08-25 18:52] LABS: TRANSFERRIN IRON PROFILE 188 MG/DL (200-360)
[2017-08-25 18:55] LABS: FERRITIN 193 NG/ML (8-252)
[2017-08-25] MEDS ORDERED: DEXTROSE 50% IN WATER 50 ML SYRINGE IV PUSH PRN (19:00)
[2017-08-25] MEDS ORDERED: GLUCAGON 1 MG/ML VIAL OTHER PRN (19:00)
[2017-08-25] MEDS ORDERED: cloNIDine HCL 0.2 MG TAB PO PRN (19:15)
[2017-08-25] MEDS ORDERED: PILL SPLITTER OTHER PRN (19:15)
[2017-08-25] MEDS: INSULIN ASPART SUPPLEMENTAL SCALE SQ SCH (21:00)
[2017-08-25] MEDS: CARVEDILOL 12.5 MG TAB PO SCH (22:20)
[2017-08-25] MEDS: FERROUS SULFATE 325 MG (65 MG ELEMENTAL IRON) TAB PO SCH (22:20)
[2017-08-25] MEDS: SODIUM CHLORIDE 0.9% FLUSH 10 ML FLUSH IV FLUSH SCH (22:20)
[2017-08-25] MEDS: FLUTICASONE PROPIONATE 50 MCG/ACT 16 GM NASAL SPRAY EACH NARE SCH (22:20)
[2017-08-25] MEDS: DOCUSATE SODIUM 50 MG/SENNA 8.6 MG TAB PO SCH (22:20)
[2017-08-26] VITALS (9 sets, daily range): BP systolic 161–186; BP diastolic 70–86; PULSE 60–63; RESP 16–20; TEMP 97.8–98.3; O2SAT 96–100
[2017-08-26] MEDS: hydrALAZINE HCL 100 MG TAB PO SCH ×3 (01:51→14:00)
[2017-08-26 07:13] LABS: BICARBONATE 18.9 MEQ/L (21.0-32.0); POTASSIUM 5.1 MEQ/L (3.5-5.1)
[2017-08-26 07:33] LABS: HEMATOCRIT 25.8 % (35.0-46.0); MEAN CELL VOLUME 75.4 FL (80.0-100.0); MEAN CORPUSCULAR HEMOGLOBIN 24.7 PG (27.0-34.0); MEAN CORPUSCULAR HGB CONC 32.8 % (32.0-36.0); PLATELET COUNT 110 TH/MM3 (150-450); RED BLOOD COUNT 3.42 MIL/MM3 (4.00-5.30); RED CELL DISTRIBUTION WIDTH 17.3 % (11.6-17.2); WHITE BLOOD COUNT 5.4 TH/MM3 (4.0-11.0)
[2017-08-26 07:54] LABS: REVIEW FLAG FINAL
[2017-08-26] MEDS: INSULIN ASPART SUPPLEMENTAL SCALE SQ SCH ×2 (08:00→13:21)
[2017-08-26] MEDS ORDERED: ALLOPURINOL 100 MG TAB PO SCH (09:00)
[2017-08-26] MEDS ORDERED: ASPIRIN 81 MG CHEW TAB CHEW SCH (09:00)
[2017-08-26] MEDS ORDERED: INSULIN DETEMIR 100 UNITS/ML VIAL SQ SCH (09:00)
[2017-08-26] MEDS ORDERED: CHOLECALCIFEROL (VIT D3) 1000 UNIT TAB PO SCH (09:00)
[2017-08-26] MEDS ORDERED: CLOPIDOGREL 75 MG TAB PO SCH (09:00)
[2017-08-26] MEDS ORDERED: VALSARTAN 160 MG TAB PO SCH (09:00)
[2017-08-26] MEDS: CARVEDILOL 12.5 MG TAB PO SCH (09:44)
[2017-08-26] MEDS: DOCUSATE SODIUM 50 MG/SENNA 8.6 MG TAB PO SCH (09:45)
[2017-08-26] MEDS: ISOSORBIDE MONONITRATE 20 MG TAB PO SCH ×2 (09:45→12:08)
[2017-08-26] MEDS: FERROUS SULFATE 325 MG (65 MG ELEMENTAL IRON) TAB PO SCH (09:45)
[2017-08-26] MEDS: FLUTICASONE PROPIONATE 50 MCG/ACT 16 GM NASAL SPRAY EACH NARE SCH (09:45)
[2017-08-26] MEDS: SODIUM CHLORIDE 0.9% FLUSH 10 ML FLUSH IV FLUSH SCH (09:46)
--- NOTE | 2017-08-26 10:53 | HHI.FPPN ---
Subjective Remarks Patient seen and examined this morning. Temperature 98.1, pulse 60, respiratory 20, pressure 176/70, pulse ox 98. She reports that she is no longer feeling fatigued or winded. She is glad that her level has increased following her blood transfusion and she is wishing to be discharged home today. Endorses: None Denies: Fever, chills, nausea, vomiting, shortness of breath, chest pain, headache, abdominal pain, calf pain All other review of symptoms were negative Objective Vitals Vital Signs Date Time Temp Pulse Resp B/P (MAP) Pulse Ox O2 Delivery O2 Flow Rate FiO2 08/26/17 08:21 98.1 60 20 176/70 (105) 98 08/26/17 07:33 96 21 08/26/17 06:38 98.3 63 16 171/72 (105) 100 08/26/17 01:47 97.8 63 18 177/79 (111) 100 08/26/17 01:41 97.8 63 18 177/79 100 08/25/17 23:54 98.0 62 18 168/83 (111) 100 08/25/17 23:54 98.0 62 18 163/83 100 08/25/17 23:31 97.9 65 18 171/81 (111) 99 08/25/17 20:55 66 15 151/66 (94) Room Air 08/25/17 19:30 100 08/25/17 19:21 70 16 182/85 (117) Room Air 08/25/17 18:46 98.2 68 21 195/88 100 08/25/17 18:27 98.3 73 21 218/84 100 08/25/17 17:40 71 18 193/80 (117) 100 Room Air 08/25/17 17:39 70 23 206/87 (126) 100 Room Air 08/25/17 15:13 98.2 70 15 206/86 (126) 99 I/O 08/25/17 08/25/17 08/25/17 08/26/17 08/26/17 08/26/17 07:00 15:00 23:00 07:00 15:00 23:00 Intake Total 4 ml 1200 ml Balance 4 ml 1200 ml Intake Oral 230 ml IV Total 17 ml Packed Cells 951 ml Blood Product IV Normal Saline Flush 4 ml 2 ml Result Diagram: 08/26/17 0552 08/26/17 0552 Objective Remarks GENERAL: Well-nourished, well-developed patient. No acute distress. Lying in bed comfortably SKIN: Warm and dry. No rash. EYES: No scleral icterus. No injection or drainage. PERRLA. EOMI. mildly pale conjunctiva HENT: Normocephalic. Atraumatic. MMM. NECK: No visible JVD or lymphadenopathy. CARDIOVASCULAR: Regular rate and rhythm without murmurs, gallops, or rubs. Has left upper extremity AV fistula with bruit RESPIRATORY: Clear to auscultation bilaterally GASTROINTESTINAL: Abdomen nondistended. MUSCULOSKELETAL: Strength grossly WNL. BACK: Without obvious deformity. NEURO/PSYCH: Afocal. Awake, alert, and oriented x3. Medications and IVs Current Medications Medications (Trade) Dose Ordered Sig/Luis Route Start Time Stop Time Status Last Admin (NS Flush) 2 ml UNSCH PRN IV FLUSH 08/25/17 18:45 (NS Flush) 2 ml BID IV FLUSH 08/25/17 21:00 08/26/17 09:46 (Zofran Inj) 4 mg Q6H PRN IVP 08/25/17 18:45 (Narcan Inj) 0.4 mg UNSCH PRN IV PUSH 08/25/17 18:45 (Kim-Colace) 1 tab BID PO 08/25/17 21:00 08/26/17 09:45 (Milk Of Magnesia Liq) 30 ml Q12H PRN PO 08/25/17 18:45 (Senokot) 17.2 mg Q12H PRN PO 08/25/17 18:45 (Dulcolax Supp) 10 mg DAILY PRN RECTAL 08/25/17 18:45 (Lactulose Liq) 30 ml DAILY PRN PO 08/25/17 18:45 (Zyloprim) 100 mg DAILY PO 08/26/17 09:00 08/26/17 09:45 (Aspirin Chew) 81 mg DAILY CHEW 08/26/17 09:00 08/26/17 09:45 (Coreg) 12.5 mg BID PO 08/25/17 21:00 08/26/17 09:44 (Vitamin D3) 2,000 units DAILY PO 08/26/17 09:00 08/26/17 09:44 (Plavix) 75 mg DAILY PO 08/26/17 09:00 08/26/17 09:45 (Apresoline) 100 mg Q8HR PO 08/25/17 22:00 08/26/17 06:44 (Levemir Inj) 4 units DAILY SQ 08/26/17 09:00 08/26/17 09:44 (Ismo) 10 mg TID PO 08/26/17 09:00 08/26/17 09:45 (Diovan) 320 mg DAILY PO 08/26/17 09:00 08/26/17 09:44 (Ferrous Sulfate) 325 mg BID PO 08/25/17 21:00 08/26/17 09:45 (Flonase Jorge Spr) 1 spray BID EACH NARE 08/25/17 21:00 08/26/17 09:45 (D50w (Syr) Inj) 50 ml UNSCH PRN IV PUSH 08/25/17 19:00 (Glucagon Inj) 1 mg UNSCH PRN OTHER 08/25/17 19:00 (NovoLOG SUPPLEMENTAL SCALE) 1 ACHS SLIDING SCALE SQ 08/25/17 21:00 (Pill Splitter) 1 ea UNSCH PRN OTHER 08/25/17 19:15 (Catapres) 0.2 mg Q6H PRN PO 08/25/17 19:15 A/P Assessment and Plan 72 year old female with chronic kidney disease, coronary artery disease, diabetes, and chronic anemia reports to ED with hemoglobin less than 7, sent by her panel monitor for blood transfusion. Status post blood transfusion Discharge Planning Anticipate discharge today wdw: Dr. Benito Problem List: (1) Anemia in chronic kidney disease (CKD) ICD Codes: N18.9 - Chronic kidney disease, unspecified; D63.1 - Anemia in chronic kidney disease Status: Acute Plan: Has anemia of chronic kidney disease, baseline hemoglobin has been trending down, in the 7's at baseline. Asymptomatic currently, except chronic fatigue. - Iron studies within normal limits - Continue ferrous sulfate -Status post 2 units of red blood cell transfusion - Repeat H&H 8.5/25.8 respectively (2) HTN (hypertension) ICD Codes: I10 - Essential (primary) hypertension Status: Chronic Plan: - Hydralazine 100 mg q8hrs - Clonidine PRN - Carvedilol 12.5 bid (3) Chronic kidney disease, stage 5, kidney failure ICD Codes: N18.5 - Chronic kidney disease, stage 5, kidney failure Status: Chronic Plan: Creatinine at baseline, not currently on dialysis. Baseline creatinine about 4.0. Dr. Olmos is her panel monitor. - Check electrolytes in the morning with renal function - Avoid nephrotoxic agents (4) CAD (coronary artery disease) ICD Codes: I25.10 - Atherosclerotic heart disease of [place] coronary artery without angina pectoris Status: Chronic Plan: - Continue aspirin and plavix (5) DM type 2 (diabetes mellitus, type 2) ICD Codes: E11.9 - Type 2 diabetes mellitus without complications Status: Chronic Plan: - Lantus 4 units in AM - Novolog low dose sliding scale (6) Nutrition, metabolism, and development symptoms ICD Codes: R63.8 - Other symptoms and signs concerning food and fluid intake Status: Acute Plan: - Renal diet - Potassium mildly elevated, chronic - Bilateral SCD's for DVT prophylaxis Problem Qualifiers (1) Anemia in chronic kidney disease (CKD): Qualified Codes: N18.5 - Chronic kidney disease, stage 5; D63.1 - Anemia in chronic kidney disease Memo Tan MD, R3 Aug 26, 2017 10:53
--- NOTE | 2017-08-26 11:00 | HHI.DCPOC ---
Discharge Care Plan Diagnosis: (1) Anemia (2) Chronic hyperkalemia (3) CKD (chronic kidney disease) Goals to Promote Your Health * To prevent worsening of your condition and complications * To maintain your health at the optimal level Directions to Meet Your Goals Take your medications as prescribed Follow your dietary instruction Follow activity as directed Keep your appointments as scheduled Take your immunizations and boosters as scheduled If your symptoms worsen call your PCP, if no PCP go to Urgent Care Center or Emergency Room Smoking is Dangerous to Your Health. Avoid second hand smoke Call the 24-hour hour crisis hotline for domestic abuse at Memo Tan MD, R3 Aug 26, 2017 11:00
--- NOTE | 2017-08-26 11:11 | HHI.FPPN ---
Subjective Remarks Patient seen and examined, discussed with Dr. Tan. This is a 72-year-old female with known chronic kidney disease and anemia of chronic disease who was in her usual state of health, was seen by her printing assistant and found to have a low hemoglobin, and was sent to the emergency department. Patient reports that she was having no particular symptoms, felt like herself and was not having dizziness, lightheadedness, no change in her stools, no fainting, no chest pain or shortness of breath. Please see admission H&P for this admission for additional past, family, social history and review of systems at the time of admission. When seen this morning , she still is feeling no change with transfusion, she's not felt any particular improvement. She feels certainly at her baseline and would like to go home. Objective Vitals Vital Signs Date Time Temp Pulse Resp B/P (MAP) Pulse Ox O2 Delivery O2 Flow Rate FiO2 08/26/17 08:21 98.1 60 20 176/70 (105) 98 08/26/17 07:33 96 21 08/26/17 06:38 98.3 63 16 171/72 (105) 100 08/26/17 01:47 97.8 63 18 177/79 (111) 100 08/26/17 01:41 97.8 63 18 177/79 100 08/25/17 23:54 98.0 62 18 168/83 (111) 100 08/25/17 23:54 98.0 62 18 163/83 100 08/25/17 23:31 97.9 65 18 171/81 (111) 99 08/25/17 20:55 66 15 151/66 (94) Room Air 08/25/17 19:30 100 08/25/17 19:21 70 16 182/85 (117) Room Air 08/25/17 18:46 98.2 68 21 195/88 100 08/25/17 18:27 98.3 73 21 218/84 100 08/25/17 17:40 71 18 193/80 (117) 100 Room Air 08/25/17 17:39 70 23 206/87 (126) 100 Room Air 08/25/17 15:13 98.2 70 15 206/86 (126) 99 I/O 08/25/17 08/25/17 08/25/17 08/26/1717 9/27/17 07:00 15:00 23:00 07:00 15:00 23:00 Intake Total 4 ml 1200 ml Balance 4 ml 1200 ml Intake Oral 230 ml IV Total 17 ml Packed Cells 951 ml Blood Product IV Normal Saline Flush 4 ml 2 ml Result Diagram: 08/26/17 0552 08/26/17 0552 Objective Remarks GENERAL: Well-nourished, well-developed patient. No acute distress. Lying in bed comfortably, eating breakfast SKIN: Warm and dry. No rash. Palms are pale. EYES: No scleral icterus. No injection or drainage. PERRLA. EOMI. mildly pale conjunctiva HENT: Normocephalic. Atraumatic. MMM. Her lower denture broke while trying to eat an apple. NECK: No visible JVD or lymphadenopathy. CARDIOVASCULAR: Regular rate and rhythm without murmurs, gallops, or rubs. Has left upper extremity AV fistula with bruit RESPIRATORY: Clear to auscultation bilaterally GASTROINTESTINAL: Abdomen nondistended. MUSCULOSKELETAL: Strength grossly WNL. BACK: Without obvious deformity. NEURO/PSYCH: Afocal. Awake, alert, and oriented x3. A/P Assessment and Plan 72 year old female with chronic kidney disease, coronary artery disease, diabetes, and anemia of chronic disease, admitted to observation with hemoglobin less than 7, sent by her printing assistant for blood transfusion. Status post blood transfusion of 2 units packed red blood cells. Discharge Planning Home today, follow-up with me and with her printing assistant as instructed. Attending Attestation Patient seen and examined. Case reviewed and discussed with the resident team. Agree with plan of care as discussed with me and documented in the resident note. Problem List: (1) Anemia in chronic kidney disease (CKD) ICD Codes: N18.9 - Chronic kidney disease, unspecified; D63.1 - Anemia in chronic kidney disease Status: Acute Plan: Has anemia of chronic kidney disease, baseline hemoglobin has been trending down, in the 7's at baseline. Asymptomatic currently, except chronic fatigue. - Iron studies within normal limits - Continue ferrous sulfate -Status post 2 units of red blood cell transfusion - Repeat H&H 8.5/25.8 respectively (2) HTN (hypertension) ICD Codes: I10 - Essential (primary) hypertension Status: Chronic Plan: - Hydralazine 100 mg q8hrs - Clonidine PRN - Carvedilol 12.5 bid (3) Chronic kidney disease, stage 5, kidney failure ICD Codes: N18.5 - Chronic kidney disease, stage 5, kidney failure Status: Chronic Plan: Creatinine at baseline, not currently on dialysis. Baseline creatinine about 4.0. Dr. Olmos is her printing assistant. - Check electrolytes in the morning with renal function - Avoid nephrotoxic agents (4) CAD (coronary artery disease) ICD Codes: I25.10 - Atherosclerotic heart disease of [place] coronary artery without angina pectoris Status: Chronic Plan: - Continue aspirin and plavix (5) DM type 2 (diabetes mellitus, type 2) ICD Codes: E11.9 - Type 2 diabetes mellitus without complications Status: Chronic Plan: - Lantus 4 units in AM - Novolog low dose sliding scale (6) Nutrition, metabolism, and development symptoms ICD Codes: R63.8 - Other symptoms and signs concerning food and fluid intake Status: Acute Plan: - Renal diet - Potassium mildly elevated, chronic - Bilateral SCD's for DVT prophylaxis Problem Qualifiers (1) Anemia in chronic kidney disease (CKD): Qualified Codes: N18.5 - Chronic kidney disease, stage 5; D63.1 - Anemia in chronic kidney disease Flori Benito MD Aug 26, 2017 11:11
== END 2017-08-26 14:51 | disposition home or self-care (01) ==
LOC: NEPC 15:10 → NEDA 17:55 → NEPFCDU 21:50
PROVIDERS: ADMIT Family Medicine; ATTEND Family Medicine
DX: D63.1 Anemia in chronic kidney disease (principal); I12.0 Hypertensive chronic kidney disease with stage 5 chronic kidney disease or end stage renal disease; N18.5 Chronic kidney disease, stage 5; E11.22 Type 2 diabetes mellitus with diabetic chronic kidney disease; E87.5 Hyperkalemia; I25.10 Atherosclerotic heart disease of native coronary artery without angina pectoris; E87.6 Hypokalemia; K21.9 Gastro-esophageal reflux disease without esophagitis; Z79.4 Long term (current) use of insulin; Z79.82 Long term (current) use of aspirin; Z79.02 Long term (current) use of antithrombotics/antiplatelets
CPT/HCPCS: 36430; 80048; 80053; 82728; 82948; 83540; 83550; 83690; 85025; 85027; 85610; 85730; 86850; 86900; 86901; 86920; 96361; 96372; 96374; 99285; G0378; J1815; J1940; J7050; P9016

== ENCOUNTER → 2017-09-21 | Outpatient (CLI) | payer MEDICARE, MEDICAID ==
[~2017-09-21] MED LIST changes: -CETI10CA3 PO; -MAGN100T2 PO
[2017-09-21 09:21] LABS: ANION GAP 9 MEQ/L (5-15); BICARBONATE 21.2 MEQ/L (21.0-32.0); BLOOD UREA NITROGEN 60 MG/DL (7-18); CHLORIDE 110 MEQ/L (98-107); GLOMERULAR FILTRATION RATE 18 ML/MIN (>89); GLUCOSE,FASTING 115 MG/DL (74-99); POTASSIUM 5.1 MEQ/L (3.5-5.1); SODIUM (NA) 140 MEQ/L (136-145)
[2017-09-21 18:09] LABS: HEMOGLOBIN A1a 1.6 %; HEMOGLOBIN Ao 82.3 %; HEMOGLOBIN LA1C 2.1 %; HEMOGLOBIN P3 4.8 %
== END ==
LOC: CLAB 07:51
DX: E11.65 Type 2 diabetes mellitus with hyperglycemia (principal)
CPT/HCPCS: 36415; 80048; 83036

== ENCOUNTER → 2017-10-12 | Outpatient (CLI) | payer MEDICARE, MEDICAID ==
[~2017-10-12] MED LIST changes: +ASPI-516 CHEW; -ASPI81CH CHEW
[2017-10-12 16:02] LABS: AUTOMATED NEUTROPHIL # 3.1 TH/MM3 (1.8-7.7); BASOPHIL % 0.8 % (0.0-2.0); EOSINOPHIL # 0.1 TH/MM3 (0-0.4); EOSINOPHIL % 2.5 % (0.0-4.0); LYMPH % 30.8 % (9.0-44.0); LYMPHOCYTE # 1.6 TH/MM3 (1.0-4.8); MEAN CELL VOLUME 73.3 FL (80.0-100.0); MEAN CORPUSCULAR HEMOGLOBIN 23.9 PG (27.0-34.0); MEAN CORPUSCULAR HGB CONC 32.6 % (32.0-36.0); MONO % 8.6 % (0.0-8.0); NEUT % 57.3 % (16.0-70.0); PLATELET COUNT 114 TH/MM3 (150-450); RED BLOOD COUNT 2.81 MIL/MM3 (4.00-5.30); RED CELL DISTRIBUTION WIDTH 17.1 % (11.6-17.2); WHITE BLOOD COUNT 5.3 TH/MM3 (4.0-11.0)
[2017-10-12 16:08] LABS: BICARBONATE 22.4 MEQ/L (21.0-32.0)
[2017-10-12 17:00] LABS: HEMO FLAGS AUTO DIFF
[2017-10-12 17:01] LABS: HEMATOCRIT 20.6 % (35.0-46.0)
[2017-10-12 17:23] LABS: EOSINOPHILS 2 % (0-4); NEUTROPHIL # MANUAL DIFF 3.7 TH/MM3 (1.8-7.7); POLYS (SEG NEUTROPHILS) 70 % (16-70); WBC DIFF SAMPLE 100
[2017-10-12 17:24] LABS: KERATOCYTES 1+ (NORMAL); OVALOCYTES 1+ (NORMAL); PLATELET ESTIMATE SMEAR LOW (NORMAL); PLATELET MORPHOLOGY NORMAL (NORMAL); SCAN/DIFF FINAL DIFF MANUAL; TEARDROP RBCS 1+ (NORMAL)
== END ==
LOC: CLAB 15:29
PROVIDERS: ATTEND Internal Medicine Nephrology
DX: N18.5 Chronic kidney disease, stage 5 (principal)
CPT/HCPCS: 36415; 80069; 85007; 85027

== ENCOUNTER → 2017-11-02 | Outpatient (CLI) | payer MEDICARE, MEDICAID ==
[2017-11-02 16:11] LABS: AUTOMATED NEUTROPHIL # 3.8 TH/MM3 (1.8-7.7); BASOPHIL # 0.1 TH/MM3 (0-0.2); BASOPHIL % 1.1 % (0.0-2.0); EOSINOPHIL # 0.1 TH/MM3 (0-0.4); EOSINOPHIL % 2.5 % (0.0-4.0); HEMATOCRIT 27.9 % (35.0-46.0); LYMPH % 24.2 % (9.0-44.0); LYMPHOCYTE # 1.4 TH/MM3 (1.0-4.8); MEAN CELL VOLUME 74.2 FL (80.0-100.0); MEAN CORPUSCULAR HGB CONC 32.4 % (32.0-36.0); MONO % 7.6 % (0.0-8.0); NEUT % 64.6 % (16.0-70.0); PLATELET COUNT 136 TH/MM3 (150-450); RED BLOOD COUNT 3.76 MIL/MM3 (4.00-5.30); WHITE BLOOD COUNT 5.9 TH/MM3 (4.0-11.0)
[2017-11-02 17:39] LABS: OVALOCYTES 1+ (NORMAL); SCAN/DIFF AUTO DIFF CONFIRMED
[2017-11-02 17:40] LABS: KERATOCYTES OCC (NORMAL)
[2017-11-02 17:41] LABS: ACANTHOCYTES 1+ (NORMAL)
[2017-11-02 17:47] LABS: PLATELET ESTIMATE SMEAR LOW (NORMAL); PLATELET MORPHOLOGY NORMAL (NORMAL)
[2017-11-02 17:49] LABS: HEMO FLAGS AUTO DIFF
== END ==
LOC: CLAB 15:22
PROVIDERS: ATTEND Hospitalist
DX: D64.9 Anemia, unspecified (principal)
CPT/HCPCS: 36415; 85025

== ENCOUNTER → 2017-12-30 | Outpatient (CLI) | payer MEDICARE, MEDICAID ==
[~2017-12-30] MED LIST changes: +ACCUTES19; -ASPI-516 CHEW; -CLOP75TA PO; +NIFE30TA61 PO; +PANT40TA3 PO; -VALS1TAB70 PO
[2017-12-30 10:12] LABS: HEMATOCRIT 23.3 % (35.0-46.0); HEMOGLOBIN 7.7 GM/DL (11.6-15.3)
[2017-12-30 10:27] LABS: ALBUMIN 3.7 GM/DL (3.4-5.0); DIRECT BILIRUBIN ADULT 0.1 MG/DL (0.0-0.2)
[2017-12-30 10:30] LABS: CHOLESTEROL/ HDL RATIO 3.19 RATIO; HDL CHOLESTEROL 48.2 MG/DL (40.0-60.0); INDIRECT BILIRUBIN 0.2 MG/DL (0.0-0.8); TOTAL BILIRUBIN ADULT 0.3 MG/DL (0.2-1.0); TOTAL PROTEIN 7.1 GM/DL (6.4-8.2)
== END ==
LOC: CLAB 09:13
PROVIDERS: ATTEND Family Medicine
DX: I77.9 Disorder of arteries and arterioles, unspecified (principal); I25.10 Atherosclerotic heart disease of native coronary artery without angina pectoris; I10 Essential (primary) hypertension; E78.2 Mixed hyperlipidemia; Z79.899 Other long term (current) drug therapy; D63.1 Anemia in chronic kidney disease
CPT/HCPCS: 36415; 80061; 80076; 82550; 82552; 85014; 85018

== ENCOUNTER → 2017-12-31 | Outpatient (CLI) | payer MEDICARE, MEDICAID ==
[2017-12-31 12:02] LABS: AUTOMATED NEUTROPHIL # 3.1 TH/MM3 (1.8-7.7); BASOPHIL # 0.1 TH/MM3 (0-0.2); BASOPHIL % 1.3 % (0.0-2.0); EOSINOPHIL # 0.2 TH/MM3 (0-0.4); EOSINOPHIL % 4.1 % (0.0-4.0); HEMATOCRIT 23.8 % (35.0-46.0); HEMOGLOBIN 7.7 GM/DL (11.6-15.3); LYMPH % 24.9 % (9.0-44.0); LYMPHOCYTE # 1.2 TH/MM3 (1.0-4.8); MEAN CELL VOLUME 72.9 FL (80.0-100.0); MEAN CORPUSCULAR HEMOGLOBIN 23.7 PG (27.0-34.0); MEAN CORPUSCULAR HGB CONC 32.5 % (32.0-36.0); MEAN PLATELET VOLUME 8.9 FL (7.0-11.0); MONO % 7.5 % (0.0-8.0); MONOCYTE # 0.4 TH/MM3 (0-0.9); NEUT % 62.2 % (16.0-70.0); PLATELET COUNT 117 TH/MM3 (150-450); RED BLOOD COUNT 3.27 MIL/MM3 (4.00-5.30); RED CELL DISTRIBUTION WIDTH 17.4 % (11.6-17.2); WHITE BLOOD COUNT 4.9 TH/MM3 (4.0-11.0)
[2017-12-31 12:20] LABS: ALBUMIN 3.6 GM/DL (3.4-5.0); BICARBONATE 25.8 MEQ/L (21.0-32.0); CALCIUM 9.3 MG/DL (8.5-10.1); CREATININE 3.04 MG/DL (0.50-1.00); PHOSPHORUS 4.1 MG/DL (2.5-4.9)
[2017-12-31 12:37] LABS: OVALOCYTES 1+ (NORMAL)
[2017-12-31 12:38] LABS: ACANTHOCYTES OCC (NORMAL)
== END ==
LOC: CLAB 11:25
PROVIDERS: ATTEND Internal Medicine Nephrology
DX: I12.0 Hypertensive chronic kidney disease with stage 5 chronic kidney disease or end stage renal disease (principal); N18.5 Chronic kidney disease, stage 5
CPT/HCPCS: 36415; 80069; 82306; 83970; 85025

== ENCOUNTER → 2018-02-25 | Outpatient (CLI) | payer MEDICARE, MEDICAID ==
[~2018-02-25] VITALS: Ht 165.1 cm; Wt 72.5 kg
[~2018-02-25] MED LIST changes: +INSULIN HUMAN REGULAR 1,000 UNITS/10 ML VIAL SQ PRN; -KION15SU; +KION15SU PO; +LACTATED RINGER'S 1000 ML IV PRN; +METOPROLOL TARTRATE 25 MG TAB PO PRN; -NIFE30TA61 PO; +NIFE60TA58 PO; +PROC20005 SQ; +SODIUM CHLORID 0.9% 500 ML IV PRN; -[UNRECOGNIZED DRUG - OTHER]
[2018-02-25 09:15] VITALS: BP 142/66; PULSE 68; RESP 20; TEMP 97.5; O2SAT 100
--- NOTE | 2018-02-25 11:56 | PD.PROCEDR ---
GI Procedure PROCEDURE PERFORMED EUS with FNA INDICATION FOR PROCEDURE Gastric mass PROCEDURE: The procedure, risks and benefits were discussed with Ms. Valles and informed consent was obtained. Anesthesia sedated her with Diprivan. She was placed in the left lateral decubitus position. Endoscopic ultrasound: The Pentax videoscope was introduced through the oropharynx and advanced to the stomach. FINDINGS: There was a large submucosal gastric mass in the antrum on the lesser curve this was isoechoic possibly slightly hyperechoic mildly inhomogeneous suggestive of possible lipoma situated in the second layer measuring about 4 cm FNA was done with good sample No lymphadenopathy was noted No abnormality of the pancreatic body and tail was noted ESTIMATED BLOOD LOSS: None SPECIMENS REMOVED: FNA of the gastric mass COMPLICATIONS: None IMPRESSION: Benign-appearing well-circumscribed submucosal gastric mass suggestive of a lipoma PLAN: Await biopsies Follow-up in clinic Lucio Amaya MD Feb 25, 2018 11:56
--- NOTE | 2018-02-25 12:23 | EKG ---
Date Performed: 02/25/2018 Time Performed: 09:02:41 PTAGE: 72 years EKG: Sinus rhythm NORMAL ECG PREVIOUS TRACING : 12/08/2016 07.03 Since the previous tracing, no significant change noted DOCTOR: Robin Stevens Interpretating Date/Time 02/25/2018 12:21:46
== END ==
LOC: HSDC 08:43
PROVIDERS: ATTEND Internal Medicine Gastroenterology
DX: K31.89 Other diseases of stomach and duodenum (principal); Z01.810 Encounter for preprocedural cardiovascular examination
CPT/HCPCS: 00731; 43242; 88173; 88305; 93005; J7120

== ENCOUNTER → 2018-04-13 | Outpatient (CLI) | payer MEDICARE, MEDICAID ==
[~2018-04-13] MED LIST changes: -FERR324T4 PO; -INSULIN HUMAN REGULAR 1,000 UNITS/10 ML VIAL SQ PRN; -LACTATED RINGER'S 1000 ML IV PRN; -METOPROLOL TARTRATE 25 MG TAB PO PRN; -SODIUM CHLORID 0.9% 500 ML IV PRN
[2018-04-13 11:44] LABS: AUTOMATED NEUTROPHIL # 2.5 TH/MM3 (1.8-7.7); BASOPHIL # 0.1 TH/MM3 (0-0.2); BASOPHIL % 1.3 % (0.0-2.0); EOSINOPHIL # 0.1 TH/MM3 (0-0.4); EOSINOPHIL % 2.2 % (0.0-4.0); HEMATOCRIT 33.5 % (35.0-46.0); HEMOGLOBIN 10.6 GM/DL (11.6-15.3); LYMPH % 30.8 % (9.0-44.0); LYMPHOCYTE # 1.3 TH/MM3 (1.0-4.8); MEAN CELL VOLUME 70.7 FL (80.0-100.0); MEAN CORPUSCULAR HEMOGLOBIN 22.4 PG (27.0-34.0); MEAN CORPUSCULAR HGB CONC 31.7 % (32.0-36.0); MEAN PLATELET VOLUME 8.9 FL (7.0-11.0); MONOCYTE # 0.3 TH/MM3 (0-0.9); NEUT % 57.7 % (16.0-70.0); PLATELET COUNT 201 TH/MM3 (150-450); RED BLOOD COUNT 4.74 MIL/MM3 (4.00-5.30); RED CELL DISTRIBUTION WIDTH 18.1 % (11.6-17.2); WHITE BLOOD COUNT 4.3 TH/MM3 (4.0-11.0)
[2018-04-13 12:13] LABS: FERRITIN 191 NG/ML (8-252)
[2018-04-13 12:17] LABS: ALBUMIN 3.8 GM/DL (3.4-5.0); BICARBONATE 22.8 MEQ/L (21.0-32.0); BLOOD UREA NITROGEN 58 MG/DL (7-18); CALCIUM 9.5 MG/DL (8.5-10.1); CHLORIDE 107 MEQ/L (98-107); CREATININE 3.17 MG/DL (0.50-1.00); GLOMERULAR FILTRATION RATE 17 ML/MIN (>89); GLUCOSE,FASTING 154 MG/DL (74-99); IRON (FE) 48 MCG/DL (50-170); PHOSPHORUS 4.4 MG/DL (2.5-4.9); SODIUM (NA) 139 MEQ/L (136-145); TOTAL IRON BINDING CAPACITY 252 MCG/DL (250-450)
[2018-04-13 12:33] LABS: KERATOCYTES 1+ (NORMAL); OVALOCYTES 1+ (NORMAL); TEARDROP RBCS 1+ (NORMAL)
== END ==
LOC: CLAB 11:23
PROVIDERS: ATTEND Internal Medicine Nephrology
DX: I12.9 Hypertensive chronic kidney disease with stage 1 through stage 4 chronic kidney disease, or unspecified chronic kidney disease (principal); N18.4 Chronic kidney disease, stage 4 (severe)
CPT/HCPCS: 36415; 80069; 82306; 82728; 83540; 83550; 83970; 85025